=== PATIENT | female | born 1945 | race Caucasian/White ===

== ENCOUNTER → 2016-04-05 | Outpatient (CLI) | payer OTHER ==
[~2016-04-05] MED LIST: ACET-1256 PO; ACET-24 PO; ADVIN10050 INH; AMT50 PO; ASPCH81X PO; ASPEC81 PO; ATOR-54 PO; CALC500C70 PO; CHOL100010 PO; CYM/30 PO; FERR1TAB13 PO; HYDR-5688 PO; HYZ/50125 PO; IRON PO; LEVO137T3 PO; LOSA100T26 PO; LPR25 PO; LYR50 PO; MELA1TAB5 PO; METO50TA16 PO; MORP-157 PO; MULT-506 PO; PANT1TAB48 PO; RXC5 PO
== END | disposition home or self-care (01) ==
LOC: C.LABBC 15:46
PROVIDERS: ATTEND Internal Medicine Geriatric Medicine
DX: M70.22 Olecranon bursitis, left elbow (principal)

== ENCOUNTER → 2016-05-25 | Outpatient (CLI) | payer OTHER ==
[~2016-05-25] MED LIST changes: -LOSA100T26 PO; +LOSA100T33 PO
--- NOTE | 2016-05-25 18:32 | DIAGNOSTIC IMAGING REPORT ---
Venous Doppler right leg VENOUS DOPP LOWER EXT UNILAT CLINICAL HISTORY: M25.569 Knee [id number] pain. Edema. TECHNIQUE: Venous Doppler COMPARISON STUDY: None FINDINGS: Normal study IMPRESSION: Normal study Electronically signed by: Vic Norris M.D. 05/25/2016 6:31 PM Dictated Date/Time: 05/25/2016 6:30 PM
--- NOTE | 2016-06-01 06:26 | CODING QUERY MEDICAL NECESSITY ---
SUPPORTING DIAGNOSIS NEEDED Dr. Whitley, A supporting diagnosis is required for the test/procedure performed on this patient in order for us to be reimbursed by the patient's insurance. Please provide a supporting diagnosis for the following test/procedure listed below next to the test name along with your signature. *If there is no additional diagnosis for this patient that would support the following test/procedure please document that below next to the test/procedure. Test(s)/Procedure(s) that require a supporting diagnosis: * ([id number]) VENOUS DOPPLER LOWER EXT UNILA DIAGNOSIS: DATE OF SERVICE: 05/25/16 Provider Signature: Date: Thank you Radhames [facility] Information Management Once completed, please kindly fax back to [phone] For questions please call [phone]
== END | disposition home or self-care (01) ==
LOC: C.ULTR 18:06
PROVIDERS: ATTEND Internal Medicine Geriatric Medicine
DX: M25.561 Pain in right knee (principal); M79.669 Pain in unspecified lower leg

== ENCOUNTER 2016-09-10 08:09 | Inpatient (IN) | payer OTHER ==
[2016-08-17 13:20] VITALS: BMI 56.0
--- NOTE | 2016-08-17 13:57 | PAT Medication Instructions ---
Service Date Aug 17, 2016. Current Home Medication List Acetaminophen (Tylenol), 1,000 MG PO TID PRN for RN Amitriptyline Hcl (Elavil), 50 MG PO QPM Aspirin (Aspirin Chewable), 81 MG PO QPM Atorvastatin (Lipitor), 20 MG PO QPM Calcium/Vitamin D (Os-Luis 500 Plus D), 1 TAB PO BID Cholecalciferol (Vitamin D), 3,000 TAB PO QAM Duloxetine HCl (Cymbalta), 1 CAP PO BID Ferrous Sulfate (Kp Ferrous Sulfate), 1 TAB PO TID Fluticasone Prop/Salmeterol (Advair Diskus 100-50 Mcg/Dose), 1 PUFF INH QAM PRN for Cough Hctz/Losartan (Hyzaar 12.5MG/50MG), 1 TAB PO QAM Hydrocodone/Acetaminophen 5MG/325MG ([place] 5MG/325MG), 1 TABLET PO PRN PRN for Pain Levothyroxine Sodium (Levothyroxine Sodium), 1 TAB PO QAM Melatonin (Kp Melatonin), 1 TAB PO HS Metoprolol Tartrate (Lopressor) (Lopressor), 50 MG PO BID Multivitamin (Multivitamin), 1 TAB PO QAM Pantoprazole (Protonix), 40 MG PO QAM Pregabalin (Lyrica), 50 MG PO TID Medication Instructions For Your Scheduled Surgery - Hold the following medications the morning of surgery: Multivitamin (Multivitamin), 1 TAB PO QAM Cholecalciferol (Vitamin D), 3,000 TAB PO QAM Hctz/Losartan (Hyzaar 12.5MG/50MG), 1 TAB PO QAM Calcium/Vitamin D (Os-Luis 500 Plus D), 1 TAB PO BID Ferrous Sulfate (Kp Ferrous Sulfate), 1 TAB PO TID - Take the following medications the morning of surgery with a sip of water OTHERWISE NOTHING TO EAT OR DRINK AFTER MIDNIGHT: Metoprolol Tartrate (Lopressor) (Lopressor), 50 MG PO BID Pregabalin (Lyrica), 50 MG PO TID Pantoprazole (Protonix), 40 MG PO QAM Levothyroxine Sodium (Levothyroxine Sodium), 1 TAB PO QAM Hydrocodone/Acetaminophen 5MG/325MG ([place] 5MG/325MG), 1 TABLET PO PRN PRN for Pain (may take if needed up to 4 hours prior to surgery) Duloxetine HCl (Cymbalta), 1 CAP PO BID Fluticasone Prop/Salmeterol (Advair Diskus 100-50 Mcg/Dose), 1 PUFF INH QAM PRN for Cough Acetaminophen (Tylenol), 1,000 MG PO TID PRN (may take if needed up to 4 hours prior to surgery) - Take the following medications as scheduled the night before surgery: Metoprolol Tartrate (Lopressor) (Lopressor), 50 MG PO BID Pregabalin (Lyrica), 50 MG PO TID Hydrocodone/Acetaminophen 5MG/325MG ([place] 5MG/325MG), 1 TABLET PO PRN PRN for Pain Melatonin (Kp Melatonin), 1 TAB PO HS Amitriptyline Hcl (Elavil), 50 MG PO QPM Aspirin (Aspirin Chewable), 81 MG PO QPM Atorvastatin (Lipitor), 20 MG PO QPM Duloxetine HCl (Cymbalta), 1 CAP PO BID Fluticasone Prop/Salmeterol (Advair Diskus 100-50 Mcg/Dose), 1 PUFF INH QAM PRN for Cough Calcium/Vitamin D (Os-Luis 500 Plus D), 1 TAB PO BID Ferrous Sulfate (Kp Ferrous Sulfate), 1 TAB PO TID Acetaminophen (Tylenol), 1,000 MG PO TID PRN If you have any questions please call us at [phone] or [phone] or [phone]
[2016-08-17 14:47] LABS: BASO % 0.3 %; BASO ABS # 0.02 K/uL (0-0.2); COMPLETE YES; EOS % 3.5 %; HEMATOCRIT 41.7 % (37-47); IG% 0.2 %; LYMPH % 28.5 %; LYMPH ABS # 1.77 K/uL (1.2-3.4); MEAN CELL VOLUME 90.8 fL (80-100); MEAN CORPUSCULAR HEMOGLOBIN 29.8 pg (25-34); MEAN CORPUSCULAR HGB CONC 32.9 g/dl (32-36); MEAN PLATELET VOLUME 9.8 fL (7.4-10.4); MONO % 10.6 %; NEUT % 56.9 %; PLATELET COUNT 192 K/uL (130-400); RED BLOOD COUNT 4.59 M/uL (4.2-5.4)
[2016-08-17 15:01] LABS: INR 0.9 (0.9-1.1); PROTHROMBIN TIME (PATIENT) 10.1 SECONDS (9.0-12.0)
[2016-08-17 15:47] LABS: BLOOD UREA NITROGEN 19 mg/dl (7-18); BUN/CREATININE RATIO 20.4 (10-20); C-REACTIVE PROTEIN < 0.29 mg/dl (0-0.29); CALCIUM 9.5 mg/dl (8.5-10.1); CARBON DIOXIDE 32 mmol/L (21-32); CHLORIDE 102 mmol/L (98-107); CREATININE 0.93 mg/dl (0.60-1.20); GLUCOSE 110 mg/dl (70-99); POTASSIUM 4.1 mmol/L (3.5-5.1); SODIUM 138 mmol/L (136-145)
--- NOTE | 2016-09-08 10:22 | History and Physical ---
History & Physical Documentation Date Sep 08, 2016. Chief Complaint Right knee pain HPI (Knee Pain) Pain Location: Anterior knee, Lateral knee, Medial knee Duration: Years Adversely Affecting: ADL's, Recreation Symptoms Include: + Catching, + Pain, + Giving way History of Injury/Trauma: Uncertain Non-Surgical Therapies: Behavior modification, Exercise program Mechanical Assistive Devices: none Joint Injection: Steroid Prior Orthopedic Procedures: None Past Medical/Surgical History HTN Elevated Cholesterol Anxiety/depression TIA without sequelae Hypothyroidism Anemia GERD Spinal Stenosis Obesity Left Knee Replacement - 03/19/09 Tonsillectomy Additional History Hepatic Disease: No Endocrine Disorder: Yes Kidney Disease: No Hypertension: Yes Heart Disease: Yes Bleeding Tendencies: No Infectious Diseases: No Family History No Heart disease, No Pulmonary disease, No Anesthesia difficulties, No Bleeding tendencies Social History Smoking Status: Never Smoker Smokeless Tobacco Use: No Alcohol Use: none Drug Use: none Marital Status: single Housing status: lives alone Occupational Status: employed Allergies Coded Allergies: SHEREE Inhibitors (Verified Adverse Reaction, Intermediate, SEVERE COUGH, ) NSAIDs (Verified Adverse Reaction, Intermediate, GI BLEED, 08/17/16) Home Medications Scheduled Amitriptyline Hcl (Elavil), 50 MG PO QPM Aspirin (Aspirin Chewable), 81 MG PO QPM Atorvastatin (Lipitor), 20 MG PO QPM Calcium/Vitamin D (Os-Luis 500 Plus D), 1 TAB PO BID Cholecalciferol (Vitamin D), 3,000 TAB PO QAM Duloxetine HCl (Cymbalta), 1 CAP PO BID Ferrous Sulfate ( Ferrous Sulfate), 1 TAB PO TID Hctz/Losartan (Hyzaar 12.5MG/50MG), 1 TAB PO QAM Levothyroxine Sodium (Levothyroxine Sodium), 1 TAB PO QAM Melatonin (Kp Melatonin), 1 TAB PO HS Metoprolol Tartrate (Lopressor) (Lopressor), 50 MG PO BID Multivitamin (Multivitamin), 1 TAB PO QAM Pantoprazole (Protonix), 40 MG PO QAM Pregabalin (Lyrica), 50 MG PO TID Scheduled PRN Acetaminophen (Tylenol), 1,000 MG PO TID PRN for RN Fluticasone Prop/Salmeterol (Advair Diskus 100-50 Mcg/Dose), 1 PUFF INH QAM PRN for Cough Hydrocodone/Acetaminophen 5MG/325MG ([place] 5MG/325MG), 1 TABLET PO PRN PRN for Pain Review of Systems Constitutional: No fever, No chills, No sweats, No weight loss, No weakness, No fatigue, No problem reported ENT: No hearing loss, No unusual epistaxis, No nasal symptoms, No sore throat, No tinnitus, No dental problems, No trouble swallowing, No problem reported Respiratory: No cough, No sputum, No wheezing, No shortness of breath, No dyspnea on exertion, No dyspnea at rest, No hemoptysis, No problem reported Cardiovascular: No chest pain, No orthopnea, No PND, No edema, No claudication , No palpitations, No problem reported Abdomen: No pain, No nausea, No vomiting, No diarrhea, No constipation, No GI bleeding, No problem reported Musculoskeletal: + joint pain Neurologic: No memory loss, No paralysis, No weakness, No numbness/tingling, No vertigo, No balance problems, No problem reported Integumentary: No rash, No itch, No new/changing skin lesions, No color change , No bleeding, No problem reported Physical Exam Skin: warm/dry, no rash Eyes: normal inspection ENT: normal ENT inspection Head: normocephalic Neck: supple, no adenopathy Respiratory/Chest: lungs clear Cardiovascular: regular rate, rhythm Abdomen / GI: normal bowel sounds Back: normal inspection Neurovascular: Warm, Dry, Normal perfusion Neurologic/Psych: no motor/sensory deficits Physical Exam (Knee) Gait: + Antalgic Range of Motion: With crepitation (ROM = 5-120) Alignment: + Genu valgum Stability: No Nathaniel, No Anterior drawer, No Varus laxity, No Rotational laxity, No Posterior drawer, No Valgus laxity, No pertinent finding Tenderness: Medial joint line, Lateral joint line, Suprapatellar Radiology Plain Films: Osteophytes, Subchondral sclerosis Plain Films Joint Space: [id number], Severe narrowing Diagnosis & Plan Diagnosis & Plan (1) Right Knee DJD Plan: TKA
[2016-09-10] VITALS (7 sets, daily range): BP systolic 114–154; BP diastolic 72–95; PULSE 51–126; TEMP 36.3–36.8; O2SAT 94–99; Ht 152.4 cm; Wt 130.0 kg
[~2016-09-10] VITALS: Ht 152.4 cm; Wt 130.0 kg
[~2016-09-10 08:09] MED LIST changes: -ACET-24 PO; +ACETAMINOPHEN 500 MG TAB PO SCH; -ASPEC81 PO; +BUPIVACAINE 0.25% 30 ML VIAL ONE; +BUPIVACAINE 0.5 % 5 MG/1 ML PF 10ML VIAL ONE; +CEFAZOLIN 3000 MG/65 ML D5W 65 ML IV SCH; +FAMOTIDINE 20 MG TAB PO SCH; +GABAPENTIN 300 MG CAP PO SCH; -IRON PO; +LACTATED RINGER'S 1000ML IV SCH; +LACTATED RINGER'S 500 ML IV SCH; -LOSA100T33 PO; -LPR25 PO; +METOCLOPRAMIDE HCL 10 MG TAB PO SCH; -MORP-157 PO; -RXC5 PO; +SCOPOLAMINE 1.5 MG TDSY TD SCH; +TRANEXAMIC ACID INJ 1,000 MG in SODIUM CHLORIDE 0.9% 100ML 100 ML IV SCH
--- NOTE | 2016-09-10 08:27 | History & Physical Bridge Note ---
H&P Re-Evaluation Bridge Note: I have examined the patient, reviewed the History & Physical and in the interval since the performance of the History & Physical I have noted the following changes of clinical significance: No changes noted
[2016-09-10] MEDS ORDERED: MIDAZOLAM HCL 1 MG/ML 2ML VIAL ONE ×2 (09:12)
[2016-09-10] MEDS ORDERED: FENTANYL CITRATE INJ 50 MCG/1 ML 2 ML VIAL ONE (10:48)
[2016-09-10] MEDS ORDERED: SODIUM CHLORIDE 0.9% PF 50 ML VIAL ONE (11:10)
[2016-09-10] MEDS ORDERED: BACITRACIN 50000 UNIT VIAL ONE (11:10)
[2016-09-10] MEDS ORDERED: BUPIVACAINE LIPOSOME 1/3% 266 MG/20 ML VIAL INFIL ONE (11:10)
[2016-09-10] MEDS ORDERED: LIDOCAINE HCL 2% 2 ML VIAL (20MG/ML) ONE (11:44)
[2016-09-10] MEDS ORDERED: PROPOFOL IV EMULSION 10 MG/ML 20 ML VIAL IV ONE (11:44)
[2016-09-10] MEDS ORDERED: EpHEDrine SULFATE 50MG/5ML SYR ONE (11:48)
[2016-09-10] MEDS ORDERED: BUPIVACAINE/EPINEPHRINE 0.25% 10 ML VIAL ONE (11:51)
[2016-09-10] MEDS ORDERED: PHENYLEPHRINE HCL INJ 10 MG/ML VIAL ONE (12:02)
[2016-09-10] MEDS ORDERED: EpHEDrine SULFATE INJ 50 MG/ML AMP IV PRN (13:00)
[2016-09-10] MEDS ORDERED: PHENYLEPHRINE 100MCG/ML 5ML SYR IV PRN (13:00)
[2016-09-10] MEDS ORDERED: HYDROmorphone INJ 2 MG/ML SYR/VIAL IV PRN (13:00)
[2016-09-10] MEDS ORDERED: ONDANSETRON INJ 2 MG/ML 2 ML VIAL IV PRN ×2 (13:00→13:15)
[2016-09-10] MEDS ORDERED: ATROPINE SULFATE 0.1 MG/ML 5ML SYR IV PRN (13:00)
--- NOTE | 2016-09-10 13:07 | [facility] Post Operative Brief Note ---
Immediate Operative Summary Operative Date Sep 10, 2016. Pre-Operative Diagnosis Right knee degenerative joint disease Post-Operative Diagnosis Right knee degenerative joint disease Procedure(s) Performed Right Total Knee Arthroplasty Surgeon Dr. Tab Tellez Granite Cutter Surgeon(s) Luis Antonio Greer PA-C Estimated Blood Loss 50 cc Findings Right Knee DJD Fluids (cc crystalloids) 1400 cc Specimens A. Right knee bone and tissue Drains None Anesthesia Spinal Complication(s) None Disposition Recovery Room / PACU
[2016-09-10] MEDS ORDERED: ALUMINUM/MAGNESIUM/SIMETH (MAALOX MAX) 30 ML UDC PO PRN (13:15)
[2016-09-10] MEDS ORDERED: METOCLOPRAMIDE HCL INJ 5 MG/ML 2 ML VIAL IV PRN (13:15)
[2016-09-10] MEDS ORDERED: ZOLPIDEM TARTRATE 5 MG TAB PO PRN (13:15)
[2016-09-10] MEDS ORDERED: SILVER SULFADIAZINE 1% CR 50 GM JAR EXT PRN (13:15)
[2016-09-10] MEDS ORDERED: FLUTICASONE/SALMETEROL 100/50 (ADVAIR) 14 PUFF/1 INHALER INH PRN (13:15)
[2016-09-10] MEDS ORDERED: BISACODYL 10 MG SUPP PR PRN (13:15)
[2016-09-10] MEDS ORDERED: MAGNESIUM HYDROXIDE SUSP 30 ML UDC PO PRN (13:15)
[2016-09-10] MEDS ORDERED: HYDROmorphone INJ 0.5 MG/0.5 ML SYR IV PRN (13:15)
--- NOTE | 2016-09-10 13:59 | DIAGNOSTIC IMAGING REPORT ---
RIGHT KNEE 1 OR 2 VIEWS ROUTINE CLINICAL HISTORY: Right knee degenerative joint disease. Arthroplasty. COMPARISON: Right knee radiographs June 10, 2016. FINDINGS: Alignment of the total right knee arthroplasty is anatomic. There are skin sebastián. There is no fracture or unexpected radiopaque foreign body. IMPRESSION: Expected findings following total right knee arthroplasty. Electronically signed by: Jose Buck M.D. 09/10/2016 1:57 PM Dictated Date/Time: 09/10/2016 1:57 PM
--- NOTE | 2016-09-10 14:25 | Anesthesiology Progress Note ---
Anesthesia Post Op Note Date & Time Sep 10, 2016 at 14:25 Vital Signs Pain Intensity: 0 Vital Signs Past 12 Hours Date Time Temp Pulse Resp B/P (MAP) Pulse Ox O2 Delivery O2 Flow Rate FiO2 09/10/16 14:10 36.5 52 17 158/56 98 Nasal Cannula 2 09/10/16 14:00 47 21 151/59 100 Nasal Cannula 2 09/10/16 13:50 54 20 147/70 97 Nasal Cannula 2 09/10/16 13:40 48 17 158/76 96 Nasal Cannula 2 09/10/16 13:30 51 13 123/76 94 Nasal Cannula 2 09/10/16 13:20 52 13 104/88 96 Nasal Cannula 2 09/10/16 13:14 36.4 54 21 122/69 94 Nasal Cannula 2 09/10/16 08:45 36.8 60 20 140/95 94 Room Air Notes Mental Status: alert / awake / arousable, participated in evaluation Pt Amnestic to Procedure: Yes Nausea / Vomiting: adequately controlled Pain: adequately controlled Airway Patency, RR, SpO2: stable & adequate BP & HR: stable & adequate Hydration State: stable & adequate Anesthetic Complications: no major complications apparent
[2016-09-10] MEDS: D5W AND 1/2NSS + 20MEQ KCL 1,000 ML IV SCH ×2 (15:35→22:41)
[2016-09-10] MEDS: PREGABALIN 50 MG CAP PO SCH ×2 (15:37→20:33)
[2016-09-10] MEDS: CHECK SCOPOLAMINE PATCH PLACEMENT SCH ×2 (15:37→23:23)
[2016-09-10] MEDS: KETOROLAC TROMETHAMINE 15 MG/ML VIAL IV. SCH ×2 (18:00→23:23)
[2016-09-10] MEDS: FERROUS GLUCONATE 324 MG TAB PO SCH (18:00)
[2016-09-10] MEDS: OXYCODONE HCL IR 5 MG TAB (IMMEDIATE RELEASE) PO PRN (18:04)
[2016-09-10] MEDS ORDERED: TRANEXAMIC ACID INJ 1,000 MG in SODIUM CHLORIDE 0.9% 100ML 100 ML IV SCH (19:00)
[2016-09-10] MEDS: CEFAZOLIN IV 2,000 MG in DEXTROSE 5% 50ML 50 ML IV SCH (20:23)
[2016-09-10] MEDS: DOCUSATE SODIUM 100 MG CAP PO SCH (20:25)
[2016-09-10] MEDS: AMITRIPTYLINE HCL 50 MG TAB PO SCH (20:25)
[2016-09-10] MEDS: TAPENTADOL ER 50 MG TABCR PO SCH (20:25)
[2016-09-10] MEDS: ATORVASTATIN 20 MG TAB PO SCH (20:26)
[2016-09-10] MEDS: DULOXETINE (CYMBALTA) 30 MG CAP PO SCH (20:26)
[2016-09-10] MEDS: CALCIUM 600MG + VIT D 400 IU TAB PO SCH (20:27)
[2016-09-10] MEDS: ASPIRIN 81 MG ECTAB PO SCH (20:27)
[2016-09-10] MEDS: SENNA 8.6 MG TAB PO SCH (20:28)
[2016-09-10] MEDS: METOPROLOL TARTRATE 50 MG TAB PO SCH (20:29)
[2016-09-10] MEDS ORDERED: NON-FORMULARY MEDICATION (Melatonin (Kp Melatonin) 1 TAB) PO SCH (21:00)
[2016-09-10] MEDS: ACETAMINOPHEN 500 MG TAB PO SCH (22:41)
[2016-09-11] VITALS (8 sets, daily range): BP systolic 107–147; BP diastolic 57–83; PULSE 61–68; TEMP 36.4–36.9; O2SAT 91–96
[2016-09-11] MEDS: OXYCODONE HCL IR 5 MG TAB (IMMEDIATE RELEASE) PO PRN (03:45)
[2016-09-11] MEDS: CEFAZOLIN IV 2,000 MG in DEXTROSE 5% 50ML 50 ML IV SCH (03:45)
[2016-09-11] MEDS: D5W AND 1/2NSS + 20MEQ KCL 1,000 ML IV SCH ×2 (05:17→10:55)
[2016-09-11] MEDS: KETOROLAC TROMETHAMINE 15 MG/ML VIAL IV. SCH ×4 (05:17→23:33)
[2016-09-11] MEDS: LEVOTHYROXINE 137 MCG TAB PO SCH (05:18)
[2016-09-11] MEDS: ACETAMINOPHEN 500 MG TAB PO SCH ×3 (05:19→21:29)
[2016-09-11 06:24] LABS: HEMATOCRIT 34.6 % (37-47); MEAN CELL VOLUME 93.5 fL (80-100); MEAN CORPUSCULAR HEMOGLOBIN 29.5 pg (25-34); MEAN CORPUSCULAR HGB CONC 31.5 g/dl (32-36); MEAN PLATELET VOLUME 9.7 fL (7.4-10.4); PLATELET COUNT 170 K/uL (130-400); WHITE BLOOD COUNT 8.25 K/uL (4.8-10.8)
[2016-09-11 06:56] LABS: BUN/CREATININE RATIO 20.2 (10-20); CALCIUM 8.9 mg/dl (8.5-10.1)
[2016-09-11] MEDS: CHECK SCOPOLAMINE PATCH PLACEMENT SCH ×3 (07:28→23:32)
--- NOTE | 2016-09-11 07:29 | OPERATIVE REPORT ---
DATE OF OPERATION: 09/10/2016 SURGEON: Tab Tellez MD HEAT TREAT SUPERVISOR: MIGUEL Roque PREOPERATIVE DIAGNOSIS: Right knee degenerative joint disease. POSTOPERATIVE DIAGNOSIS: Same. PROCEDURE PERFORMED: Right cemented posterior stabilized total knee arthroplasty. COMPLICATIONS: None. ESTIMATED BLOOD LOSS: 50 mL. FLUID REPLACEMENT: 1400 mL crystalloid fluid replacement. ANESTHESIA: Spinal with adductor canal block. DRAINS: None. SPECIMENS: Right knee sent for pathology. TOURNIQUET TIME: 61 minutes at 350 mmHg. OPERATIVE INDICATIONS: The patient is a 71-year-old female who is now about 7 years out from a left knee replacement. Over the years, she developed increased pain and discomfort in her right knee. She has been through extensive conservative treatment without adequate relief. X-rays revealed advanced tricompartmental tricompartment DJD. The patient elected to proceed with operative treatment. OPERATIVE FINDINGS: Operative findings revealed advanced right knee tricompartment DJD. She had a very large soft tissue envelope with a BMI of 56. She had extensive grade 4 changes in all 3 compartments. Slightly valgus aligned knee. Diffuse osteopenia. Large knee joint effusion. She had multiple osteophytes in all 3 compartments and also some loose bodies in suprapatellar pouch and adherent to the quad tendon. OPERATIVE IMPLANTS: Operative implants consisted of: 1. Biomet Vanguard size 67.5 right posterior stabilized femoral component. 2. Biomet size 71 tibial tray. 3. A 12-mm posterior stabilized polyethylene insert. 4. A 31 x 8 all poly patella. OPERATIVE PROCEDURE: The patient was taken to the operating room, identified and placed on the operating table in the supine position. All contact areas were appropriately padded. IV antibiotics provided by anesthesia team. A spinal anesthetic and adductor canal block had been provided in the holding area. Romero catheter was placed in sterile fashion. Right thigh tourniquet was then placed and the right lower extremity was then prepped and draped in the usual sterile fashion. The right leg was elevated and exsanguinated with an Esmarch and tourniquet was placed at 350 mmHg. An anterior approach to the right knee was then performed through a longitudinal incision. Sharp dissection was carried out through the subcutaneous tissues down to the level of the extensor mechanism. She had a very large soft tissue envelope. A medial parapatellar arthrotomy incision was made. Some subperiosteal dissection was carried out medially. The fat pad was resected from beneath the patellar tendon. The lateral patellofemoral ligament was released. There were multiple loose bodies removed from the suprapatellar pouch area and adherent to the quad. The patella was then subluxated laterally and the knee was flexed. The osteophytes were taken off the distal femur. The ACL and PCL were then released from the distal femur and the tibia subluxated anteriorly. The external tibial alignment jig was then placed in the anterior face of the tibia and adjusted 12 mm medially. Proximal tibial cut was made to remove about 3-4 mm of bone from the medial side. This took by an even piece both medially and laterally. The tibia was sized to a size 71. Attention was then drawn to the femur. The distal femur was entered with a sharp drill. Intramedullary canal was suctioned. A right 5-degree valgus cutting guide was placed. Distal femoral cutting block was pinned in place. Distal femoral cut was made to take an additional 3 mm of bone off the distal femur. The femur was then sized to a size 67.5. We did downsize this just slightly. The AP cutting block was pinned parallel to the epicondylar axis, which was 5 degrees of external rotation. The anterior cut, anterior chamfer, posterior cut, and posterior chamfer cuts were made. Box cutting guide was placed and adjusted slightly lateral and the box cut was made. The knee was flexed. The remnants of the medial and lateral menisci were excised. The osteophytes were taken off the posterior aspect of the femur. Trial femoral component was placed. Tibial tray was pinned in maximum external rotation and the drill and stem punch were used to create defect in the proximal tibia for the tibial tray. The knee was then trialed and a 12-mm insert fit most appropriately. Attention was then drawn to the patella. The patella was cleaned of all soft tissues. Patellar thickness measured about 18 mm. It was cut down to about 14. I was concerned to cut anymore as it was pretty osteopenic. It was sized to a size 31 patella. Lug holes were drilled for a 31 patella. Lateral osteophyte was removed. The patellar button was placed. Knee was taken through range of motion and the patella tracked nicely with no thumbs test. Attention was then drawn toward placement of permanent components. All trial components were removed. A bone plug was placed in the distal femur to limit blood loss. A double batch of Palacos G cement was mixed. A right size 67.5 posterior stabilized femoral component, size 71 tibial tray, a 12-mm posterior stabilized polyethylene insert, and a 31 x 8 all poly patella then cemented in place. Knee was brought out into full extension until cement had hardened. A final cement check was then performed. The pericapsular tissues were injected with a total of 100 mL of a combination of 20 mL of Exparel, 30 mL of normal saline, and 50 mL of 0.25% Marcaine with epinephrine. The tourniquet was then let down for final tourniquet time of 61 minutes. The patient did receive 1 gram of tranexamic acid. The wound was once again irrigated. The extensor mechanism was then closed with a combination of #1 PDS suture and #1 Vicryl suture in a [id number] fashion. Extensor mechanism was checked and found to be intact. Subcutaneous tissues were then closed with 2-0 Dexon suture in a buried interrupted fashion. Skin was closed skin sebastián. Leg was then cleaned and dried and a sterile dressing of Xeroform, 4 x 4, sterile cast padding and Ganesh bandage were applied. The patient was then transferred to the recovery room in stable condition. The patient tolerated the procedure well with no complications. All needle and sponge counts were correct at the end of the operation. I attest to the content of the Intraoperative Record and any orders documented therein. Any exception s are noted below.
[2016-09-11] MEDS: PREGABALIN 50 MG CAP PO SCH ×3 (08:29→20:59)
[2016-09-11] MEDS: TAPENTADOL ER 50 MG TABCR PO SCH ×2 (08:30→20:59)
[2016-09-11] MEDS: DOCUSATE SODIUM 100 MG CAP PO SCH ×2 (08:30→20:51)
[2016-09-11] MEDS: DULOXETINE (CYMBALTA) 30 MG CAP PO SCH ×2 (08:30→20:53)
[2016-09-11] MEDS: PANTOprazole SOD 40 MG TAB PO SCH (08:30)
[2016-09-11] MEDS: MULTIVITAMIN TAB PO SCH (08:30)
[2016-09-11] MEDS: METOPROLOL TARTRATE 50 MG TAB PO SCH ×2 (08:30→20:54)
[2016-09-11] MEDS: FERROUS GLUCONATE 324 MG TAB PO SCH ×3 (08:31→17:29)
[2016-09-11] MEDS: ASPIRIN 81 MG ECTAB PO SCH ×2 (08:31→20:51)
[2016-09-11] MEDS: CHOLECALCIFEROL 400 INTER.UNIT TAB PO SCH (08:31)
[2016-09-11] MEDS: LOSARTAN/HCTZ 50-12.5 EA TAB PO SCH (08:31)
[2016-09-11] MEDS: CALCIUM 600MG + VIT D 400 IU TAB PO SCH ×2 (08:31→20:52)
[2016-09-11] MEDS ORDERED: RXC5 PO (08:37)
[2016-09-11] MEDS ORDERED: ASPEC81 PO (08:37)
[2016-09-11] MEDS ORDERED: MORP-157 PO (08:37)
[2016-09-11] MEDS ORDERED: ACET-24 PO (08:37)
--- NOTE | 2016-09-11 08:39 | Discharge Instructions ---
Discharge Instructions Date of Service Sep 11, 2016. Admission Reason for Admission: Right Knee Degenerative Joint Disease Discharge Discharge Diagnosis / Problem: Right Knee Replacement Discharge Goals Goal(s): Decrease discomfort, Improve function, Increase independence, Improve disease control, Therapeutic intervention Activity Recommendations Activity Limitations: per Instructions/Follow-up section Weightbearing Status: Right weightbearing . Instructions / Follow-Up Instructions / Follow-Up ACTIVITY RECOMMENDATIONS: Physical Therapy: * You will go to physical therapy three times each week for four to six weeks after your surgery in order to regain your knee range of motion and to retrain your knee to work properly. * It is just as important to make sure you are getting your knee perfectly straight as it is to regain your knee bend. * Taking a pain pill an hour before therapy can help you have a more productive and comfortable therapy session. Home Exercise: * You were shown a series of exercises (heel props, heel slides, etc.) in the hospital. Do these exercises three to four times each day including the exercises you were shown in physical therapy. Walking: * Get up and walk several times each day. For the first four weeks, try not to stand or walk for more than one hour at a time. If you do stand or walk for more than one hour, you will not hurt anything, but your knee and leg will likely swell. * As you feel comfortable, you may change from the walker or crutches to a cane and then to independent walking. MEDICATIONS: New Medicine: * You will likely be taking one or more of these medications: 1. MS Contin - A long-acting pain medication. Take 1 tablet twice a day for the first ten days to decrease your baseline level of pain. 2. Oxycodone - A quick and shorter-acting pain medication. Take one to two tablets every four to six hours to lessen your pain. 3. Iron Sulfate - Take three times each day for the month after surgery to help you replace the blood lost during surgery. 4. Aspirin - Thins your blood to lessen the chance of forming a blood clot. * The most common side effects of pain medicine and iron are nausea and constipation. If nausea or constipation is too much of a problem or if you have any questions about your new medicines or doses, call [facility] at . We will try to help you manage these issues. VERY IMPORTANT TO READ AND REVIEW" Pain: * The immediate post-operative period after knee replacement surgery is often quite painful. * You are given a prescription for pain medicine. You should take it, as directed, when you need it, especially before physical therapy and before going to bed. Pain that interferes with sleep is very common and can last several months. * You will likely need pain medicine for the first four to six weeks. It will not stop all of the pain. The pain will lessen and as you feel better, you may change to milder pain medicine such as Tylenol. * The most common side effects of pain medicine are nausea and constipation, so don't take more than you need. SPECIAL CARE INSTRUCTIONS: TEDs/Elastic Stockings: * The white elastic stockings help limit swelling and prevent blood clots from forming in your legs. The more you wear them, the more they work. * Wear them for six weeks after knee replacement surgery and four weeks after partial knee replacement. Prevention of Infection: * Take antibiotics one hour before any dental cleaning, dental work, urological procedure, gastrointestinal procedure or any invasive surgery in order to prevent your new joint from getting infected. * You may get the antibiotics from the doctor performing the procedure or you may call our office at before and we will call in a prescription to the pharmacy of your choice. Things to Watch For: * Drainage from the incision site that occurs more than one week after your surgery. * Severely increased knee/leg pain or swelling. * Increased redness at the incision site. * Fever above 102 degrees Fahrenheit. * Unusual chest pain or shortness of breath. * Unusual pain or burning with urination. Call [facility] at with any of the above problems or if you have any questions about your medicines or recovery. FOLLOW UP VISIT: Make an appointment to see your doctor for approximately two weeks after surgery for a progress check and staple removal by calling the office at . Current Hospital Diet Patient's current hospital diet: Regular Diet Discharge Diet Recommended Diet: Regular Diet Procedures Procedures Performed: Right Total Knee Arthroplasty Pending Studies Studies pending at discharge: no Medical Emergencies . Who to Call and When: Medical Emergencies: If at any time you feel your situation is an emergency, please call [phone] immediately. . Non-Emergent Contact Non-Emergency issues call your: Surgeon . "Provider Documentation" section prepared by Tab Tellez. . VTE Core Measure Inpt VTE Proph given/why not?: Other Anticoagulation, T.E.D. Stockings, SCD's
[2016-09-11] MEDS ORDERED: MULTIVITAMIN TAB PO SCH (09:00)
[2016-09-11] MEDS ORDERED: PANTOprazole SOD 40 MG TAB PO SCH (09:00)
--- NOTE | 2016-09-11 09:40 | PROGRESS NOTE ---
DATE: 09/11/2016 SUBJECTIVE: A 71-year-old white female postop day 1 from right knee replacement. She is doing pretty well. Pain is controlled. Denies any chest pain or shortness of breath. Not feeling dizzy or lightheaded. OBJECTIVE: VITAL SIGNS: Temperature 36.9. Vital signs stable. PHYSICAL EXAMINATION: GENERAL: Reveals a healthy, pleasant elderly female. She is lying in bed, looks pretty comfortable. LUNGS: Clear to auscultation. HEART: Regular rate and rhythm. ABDOMEN: Soft, nontender, nondistended. EXTREMITIES: Grossly neurovascularly intact except as follows: Examination of the right leg reveals the dressing to be clean, dry and intact. The leg is well aligned. She can dorsiflex and plantarflex her foot appropriately. NEUROLOGIC: She is neurologically intact. LABORATORY DATA: Hemoglobin 10.9, hematocrit 34.6. Electrolytes are stable. ASSESSMENT: A 71-year-old white female postop day 1 from right knee replacement, doing pretty well. Mildly anemic. She is asymptomatic. Pain is controlled. She is neurologically intact. PLAN: 1. DVT prophylaxis including thigh-high TEDs, SCDs, and we are going to give her baby aspirin twice a day. 2. PT/OT. Weightbearing as tolerated. Right total knee protocol. 3. Pain control, doing reasonably well with current pain regimen. 4. Anemia. Currently asymptomatic. We will continue iron supplementation. 5. Disposition: Plan to discharge to her daughter's house where she will likely get some home health for a period of time.
[2016-09-11] MEDS: ATORVASTATIN 20 MG TAB PO SCH (21:27)
[2016-09-11] MEDS: AMITRIPTYLINE HCL 50 MG TAB PO SCH (21:27)
[2016-09-11] MEDS: SENNA 8.6 MG TAB PO SCH (21:28)
[2016-09-12] MEDS: ACETAMINOPHEN 500 MG TAB PO SCH (06:02)
[2016-09-12] MEDS: LEVOTHYROXINE 137 MCG TAB PO SCH (06:03)
[2016-09-12] MEDS: KETOROLAC TROMETHAMINE 15 MG/ML VIAL IV. SCH (06:06)
[2016-09-12 07:30] VITALS: BP 114/61; PULSE 75; TEMP 36.8; O2SAT 93
[2016-09-12] MEDS: TAPENTADOL ER 50 MG TABCR PO SCH (08:23)
[2016-09-12] MEDS: PREGABALIN 50 MG CAP PO SCH (08:23)
[2016-09-12] MEDS: CHOLECALCIFEROL 400 INTER.UNIT TAB PO SCH (08:24)
[2016-09-12] MEDS: MULTIVITAMIN TAB PO SCH (08:24)
[2016-09-12] MEDS: LOSARTAN/HCTZ 50-12.5 EA TAB PO SCH (08:24)
[2016-09-12] MEDS: FERROUS GLUCONATE 324 MG TAB PO SCH (08:24)
[2016-09-12] MEDS: PANTOprazole SOD 40 MG TAB PO SCH (08:24)
[2016-09-12] MEDS: CALCIUM 600MG + VIT D 400 IU TAB PO SCH (08:25)
[2016-09-12] MEDS: ASPIRIN 81 MG ECTAB PO SCH (08:25)
[2016-09-12] MEDS: DOCUSATE SODIUM 100 MG CAP PO SCH (08:25)
[2016-09-12] MEDS: METOPROLOL TARTRATE 50 MG TAB PO SCH (08:25)
[2016-09-12] MEDS: DULOXETINE (CYMBALTA) 30 MG CAP PO SCH (08:25)
[2016-09-12 09:18] VITALS: BP 114/61; PULSE 75; O2SAT 93
[2016-09-12 09:29] VITALS: BP 114/61; PULSE 75; TEMP 36.8; O2SAT 93
--- NOTE | 2016-09-12 11:11 | PROGRESS NOTE ---
DATE: 09/12/2016 DATE: 09/12/2016. SUBJECTIVE: A 71-year-old white female postop day 2 from right knee replacement. She is doing pretty well. Pain is controlled. Denies any chest pain or shortness of breath. Not feeling dizzy or lightheaded. OBJECTIVE: VITAL SIGNS: Temperature 36.7. Vital signs stable. PHYSICAL EXAMINATION: GENERAL: Reveals a pleasant elderly female. She is lying in bed and looks comfortable. LUNGS: Clear to auscultation. HEART: Regular rate and rhythm. ABDOMEN: Soft, nontender, nondistended. EXTREMITY EXAMINATION: Grossly neurovascularly intact except as follows: Examination of the right leg reveals the leg to be well aligned. Dressing is clean, dry and intact. The patient can dorsiflex and plantarflex her foot appropriately. Calf is soft and supple. ASSESSMENT: A 71-year-old white female postop day 2 from a right knee replacement, doing well. Pain is controlled. PLAN: 1. DVT prophylaxis including thigh-high TEDs, SCDs, and aspirin. She is going to take a baby aspirin twice a day. 2. PT/OT. Weightbearing as tolerated. Right total knee protocol. 3. Pain control. Doing well with current pain regimen. 4. Anemia currently asymptomatic. Continue iron supplementation. 5. Disposition. Plan to discharge to her daughter's house with some home health.
--- NOTE | 2016-09-16 15:51 | DISCHARGE SUMMARY ---
NOTICE TO RECEIVING LIBERTARIAN/AGENCY This information is strictly Confidential and protected under [place] law. [place] law prohibits you from making any further disclosure of this information unless further disclosure is expressly permitted by the written consent of the person to whom it pertains or is authorized by law. A general authorization for the release of medical or other information is not sufficient for this purpose. Hospital accepts no responsibility if the information is made available to any other person, INCLUDING THE PATIENT. ADMITTING PHYSICIAN AND SURGEON: Dr. Tellez. ADMITTING DIAGNOSIS: Right knee degenerative joint disease. SURGERY PERFORMED: Right total knee arthroplasty. SECONDARY DIAGNOSES: Hypertension, elevated cholesterol, anxiety, depression, TIA, hypothyroidism, anemia, GERD, spinal stenosis, obesity, left total knee replacement, tonsillectomy. CONSULTS: None obtained. HISTORY AND PHYSICAL EXAMINATION: Well documented in patient's chart. HOSPITAL COURSE: The patient was admitted on 09/10/2016 underwent total knee arthroplasty. She tolerated the procedure well. There were no complications. She was transferred to PACU postoperatively and later to the orthopedic floor for further care. She was given Ancef for antibiotic prophylaxis, SERENITY stockings, SCDs and aspirin for DVT prophylaxis. Her hemoglobin, hematocrit and vital signs were monitored during her hospital stay and remained stable. She developed some postoperative anemia, did not require any blood transfusions. There were no complications. By postoperative day 2, she was tolerating a general diet, pain was controlled with oral pain medicine. She was participating in physical therapy and had no signs or symptoms of deep vein thrombosis. On postop day 2, she was discharged home and set up with home health services, given printed discharge instructions including prescriptions for extra strength Tylenol, aspirin 81 mg b.i.d., MS Contin, oxycodone. Continue her home medicines with the exception of her home doses of Tylenol, aspirin and [place] which she was told to stop. Continue physical therapy. weightbearing as tolerated, SERENITY stockings. Follow up in 10-12 days or sooner if there are any problems or concerns.
== END 2016-09-12 10:59 | disposition home health service (06) | DRG 470 ==
LOC: C.ACU 08:09 → C.3E 08:46 → ENRESERV 13:48
PROVIDERS: ADMIT Orthopaedic Surgery Sports Medicine; ATTEND Orthopaedic Surgery Sports Medicine
PROC: 0SRD0J9 Replacement of Left Knee Joint with Synthetic Substitute, Cemented, Open Approach (ICD-10-PCS; principal; 2016-09-10 10:40)
DX: M17.11 Unilateral primary osteoarthritis, right knee (principal); I10 Essential (primary) hypertension; E78.00 Pure hypercholesterolemia, unspecified; F41.9 Anxiety disorder, unspecified; F32.9 Major depressive disorder, single episode, unspecified; Z86.73 Personal history of transient ischemic attack (TIA), and cerebral infarction without residual deficits; E03.9 Hypothyroidism, unspecified; K21.9 Gastro-esophageal reflux disease without esophagitis; E66.9 Obesity, unspecified; Z96.652 Presence of left artificial knee joint; Z79.82 Long term (current) use of aspirin

== ENCOUNTER → 2017-09-29 | Outpatient (CLI) | payer OTHER ==
[~2017-09-29] MED LIST changes: -ACET-1256 PO; +ACET-24 PO; -ACETAMINOPHEN 500 MG TAB PO SCH; -ASPCH81X PO; +ASPI-320 PO; -ATOR-54 PO; -BUPIVACAINE 0.25% 30 ML VIAL ONE; -BUPIVACAINE 0.5 % 5 MG/1 ML PF 10ML VIAL ONE; -CEFAZOLIN 3000 MG/65 ML D5W 65 ML IV SCH; -FAMOTIDINE 20 MG TAB PO SCH; -GABAPENTIN 300 MG CAP PO SCH; -HYDR-5688 PO; -LACTATED RINGER'S 1000ML IV SCH; -LACTATED RINGER'S 500 ML IV SCH; +LPT/40 PO; -LYR50 PO; -METOCLOPRAMIDE HCL 10 MG TAB PO SCH; +PANT1TAB3 PO; -PANT1TAB48 PO; -SCOPOLAMINE 1.5 MG TDSY TD SCH; -TRANEXAMIC ACID INJ 1,000 MG in SODIUM CHLORIDE 0.9% 100ML 100 ML IV SCH
== END | disposition home or self-care (01) ==
LOC: C.MAMM 14:40
PROVIDERS: ATTEND Physician Assistant
DX: Z00.00 Encounter for general adult medical examination without abnormal findings (principal)

== ENCOUNTER 2022-06-29 10:15 | Inpatient (IN) ==
[2022-06-29] MEDS ORDERED: SODIUM CHLORIDE 0.9% 500 ML IV ONE (11:04)
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
[2022-06-29 11:57] LABS: iSTAT Creatinine 0.7 mg/dl (0.6-1.3); iSTAT Hemoglobin 12.9 g/dl (12.0-16.0); iSTAT Ionized Calcium 1.18 mmol/l (1.12-1.32)
[2022-06-29 12:14] LABS: Appearance Urine Clear (Clear); Bacteria Urine Automated Negative (Negative); Bilirubin Urine Negative (Negative); Blood Urine Trace (Negative); Cast Urine Automated 0 /lpf (0-5); Color Urine Yellow; Glucose Urine UA Negative (Negative); Ketones Urine Negative (Negative); Leukocyte Esterase Urine 1+ (Negative); Nitrite Urine Negative (Negative); Protein Urine Negative (Negative); RBC Urine Automated 0-4 /hpf (0-4); Specific Gravity Urine 1.008 (1.000-1.030); Urobilinogen Urine Negative (Negative); pH Urine 7.5 (4.5-7.5)
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
[2022-06-29 12:19] LABS: Basophils # (auto) 0.04 K/uL (0-0.2); Basophils % (auto) 0.3 %; Eosinophils # (auto) 0.08 K/uL (0-0.50); Eosinophils % (auto) 0.7 %; Hematocrit (blood only) 41.6 % (37.0-47.0); Hemoglobin 13.6 g/dl (12.0-16.0); Immature Granulocytes # (auto) 0.06 K/uL (0.01-0.20); Immature Granulocytes % (auto) 0.5 %; Lymphocytes # (auto) 1.04 K/uL (1.2-3.4); Lymphocytes % (auto) 8.7 %; Mean Corpuscular Hemoglobin 30.3 pg (25.0-34.0); Mean Corpuscular Hgb Conc 32.7 g/dL (32.0-36.0); Mean Corpuscular Volume 92.7 fL (80.0-100.0); Mean Platelet Volume 9.8 fL (9.4-12.4); Monocytes # (auto) 0.81 K/uL (0.11-0.59); Monocytes % (auto) 6.8 %; Neutrophils # (auto) 9.89 K/uL (1.40-6.50); Platelet Count 206 K/uL (130-400); RDW Standard Deviation 47.8 fL (36.4-46.3); Red Blood Count 4.49 M/uL (4.20-5.40); White Blood Count 11.92 K/ul (4.8-10.8)
[2022-06-29] MEDS ORDERED: OPTIRAY 320 100ml IV ONE (12:24)
--- NOTE | 2022-06-29 12:24 | XRay Report ---
RIGHT ANKLE 3 VIEWS CLINICAL HISTORY: Right ankle injury. FINDINGS: 3 views of the right ankle are obtained. No prior studies are available for comparison at t he time of dictation. The skeletal structures are osteopenic. No fracture seen at the ankle joint. Th ere is acute impacted and comminuted calcaneal fracture. The ankle mortise is intact. Severe soft tis praneeth edema is present on the ankle and hindfoot. There is degenerative spurring along the dorsal aspec t of the tarsal bones. Phleboliths are seen within the pretibial soft tissues. IMPRESSION: 1. No acute fracture seen at the ankle joint. 2. Impacted and comminuted calcaneal fracture. Electronically signed by: David Mahmood M.D. 06/29/2022 12:22 PM
[2022-06-29 12:33] LABS: Albumin Globulin Ratio 1.5 (0.9-2); Albumin Level 4.1 gm/dl (3.4-5.0); BUN Creatinine Ratio 24.6 (10-20); Bilirubin,Total 0.8 mg/dl (0.2-1.0); Calcium 9.7 mg/dl (8.6-10.3); Est GFR (African American) 96.6 ml/min; Est GFR (Non-African American) 83.4 ml/min; Globulin 2.8 gm/dl (2.5-4.0); Total Protein 6.9 gm/dl (6.0-8.3)
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
--- NOTE | 2022-06-29 12:35 | XRay Report ---
XR foot RT min 3V routine CLINICAL HISTORY: r foot pain TECHNIQUE: 2 views of the right foot were obtained. Comparison: None available at the time of this dictation. FINDINGS: There is a fracture of the calcaneus which appears comminuted involving the tuberosity and anterior p rocess. 8 does appear to extend to the posterior facet. Degenerative changes are seen. Soft tissue sw elling is seen about the foot. IMPRESSION: Comminuted and impacted intra-articular calcaneal fracture is seen with associated soft tissue natalielli ng. ACT 112: Negative or not required by law. Electronically signed by: Bharathi Coker M.D. 06/29/2022 12:33 PM
[2022-06-29 12:39] LABS: Troponin I High Sensitivity 14.8 pg/ml (0-14)
--- NOTE | 2022-06-29 12:45 | CT Scan Report ---
CT chest diagnostic w con CLINICAL HISTORY: Trauma TECHNIQUE: Multidetector row helical CT of the chest was performed with intravenous contrast. Coronal and sagittal reformations were obtained. Automated dose lowering techniques and/or adjustment accord ing to patient size were utilized for this exam. Comparison: None available at the time of this dictation. FINDINGS: Lungs and pleura: Unremarkable without evidence of contusion. Mild atelectasis is seen in the right l ower lung. There is a 5 mm nodule in the right middle lobe (series 12 image 118) which is stable from prior exam. Heart and pericardium: Aortic valvular calcifications are seen. Vessels: Mild atherosclerotic changes in the aorta and coronary arteries. Mediastinum and dileep: Unremarkable. Chest wall and lower neck: Unremarkable. Abdomen: For findings below the diaphragm, please refer to CT of the abdomen dated the same. Bones: Unremarkable. IMPRESSION: No acute abnormalities and in particular no evidence of acute fracture. ACT 112: Negative or not required by law. Electronically signed by: Bharathi Coker M.D. 06/29/2022 12:43 PM
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
[2022-06-29] MEDS ORDERED: LIDO/EPINEPHRINE/SOD BICARB 50 ML VIAL INFIL ONE (13:15)
[2022-06-29 13:20] LABS: Prothrombin Time 10.7 Seconds (9.0-12.0)
[2022-06-29] MEDS ORDERED: HYDROmorphone INJ 0.5 MG/0.5 ML SYR IV STA (13:53)
--- NOTE | 2022-06-29 14:05 | Emergency Department Note ---
ED Visit Note I was asked by Dr. Rust to evaluate and repair the patient's lacerations on her L knee and R lower leg. Patient is up to date on tetanus. Laceration repair performed by myself: Location: Left anterior knee Description: curvilinear extending to subcutaneous tissue measuring 3 cm in length. No joint involvement Procedure: Local anesthesia was achieved with 3 mL lidocaine 1% with epinephrine. Wound was copiously irrigated with sterile saline. Wound was draped and repaired with 3, 4-0 nylon simple interrupted sutures. Wound dressing was applied consisting of bacitracin ointment, Vaseline gauze, Telfa nonstick gauze, and roll gauze. Patient tolerated procedure well, no complications. Location: Right anterior lower leg Description: Linear flap laceration measuring 5 cm in length extending into the subcutaneous tissue. Procedure: Local anesthesia was achieved with 6 mL lidocaine 1% with epinephrine. Wound was copiously irrigated with sterile saline. Wound was draped and repaired with 8, 4-0 nylon simple interrupted sutures. Wound dressing was applied consisting of bacitracin ointment, Vaseline gauze, Telfa nonstick gauze, and roll gauze. Patient tolerated procedure well, no complications. Suture removal should occur in 14 days. Patient should be advised to avoid fully flexing the left knee to prevent dehiscence. Please refer to Dr. Rust's note for further details regarding patient's disposition. .
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
--- NOTE | 2022-06-29 15:04 | CT Scan Report ---
CT foot RT wo con CLINICAL HISTORY: per ortho TECHNIQUE: Multidetector row helical CT of the right foot was performed without intravenous contrast. Coronal and sagittal reformations were obtained. Automated dose lowering techniques and/or adjustmen t according to patient size were utilized for this examination. CT DOSE: 187.32 mGy.cm Comparison: Comparison is made to right foot radiographs 06/29/2022 FINDINGS: There is a comminuted intra-articular fracture of the calcaneus involving the anterior and posterior articular facets. The joint spaces are maintained. Soft tissue swelling is seen about the heel of the foot and about the ankle. IMPRESSION: Comminuted fracture of the calcaneus involving both articular facets. ACT 112: Negative or not required by law. Electronically signed by: Bharathi Coker M.D. 06/29/2022 3:03 PM
[2022-06-29] MEDS ORDERED: POLYETHYLENE (MIRALAX) 17 GM PACK PO PRN (16:20)
[2022-06-29] MEDS ORDERED: ONDANSETRON INJ 2 MG/ML 2 ML VIAL IV PRN (16:20)
[2022-06-29] MEDS ORDERED: ACETAMINOPHEN 1,000 MG/100 ML VIAL IV PRN (16:20)
[2022-06-29] MEDS ORDERED: HYDROmorphone INJ 0.5 MG/0.5 ML SYR IV PRN (16:20)
[2022-06-29] MEDS: DICLOFENAC SOD 1% GEL 100 GM TUBE EXT SCH ×2 (16:56→20:32)
[2022-06-29] MEDS ORDERED: ENOXAPARIN INJ 40 MG/0.4 ML SYR SQ ONE (17:00)
[2022-06-29] MEDS: METOPROLOL TARTRATE 25 MG TAB PO SCH (20:09)
[2022-06-29] MEDS: ACETAMINOPHEN 325 MG TAB PO PRN (20:35)
[2022-06-29] MEDS: MELATONIN 3 MG TAB PO SCH (20:36)
[2022-06-29] MEDS: DULoxetine HCL 30 MG CAP PO SCH (20:36)
[2022-06-29] MEDS: PANTOprazole 40 MG TAB PO SCH (20:37)
[2022-06-29] MEDS: PREGABALIN 50 MG CAP PO SCH (20:38)
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
[2022-06-30] MEDS: ACETAMINOPHEN 325 MG TAB PO PRN ×2 (00:28→05:52)
[2022-06-30] MEDS: LEVOTHYROXINE SODIUM 125 MCG TABLET PO SCH (05:52)
--- NOTE | 2022-06-30 06:11 | Electrocardiogram Report ---
Test Reason : Blood Pressure : / mmHG Vent. Rate : 053 BPM Atrial Rate : 053 BPM P-R Int : 172 ms QRS Dur : 078 ms QT Int : 456 ms P-R-T Axes : 078 -05 043 degrees QTc Int : 427 ms Poor data quality, interpretation may be adversely affected Sinus bradycardia Otherwise normal ECG When compared with ECG of 24-JAN-2015 07:04, No significant change was found Confirmed by Heber Barrera ([id number]) on 06/30/2022 6:10:26 AM Referred By: Confirmed By:Heber Barrera
[2022-06-30 06:15] LABS: Hematocrit (blood only) 33.9 % (37.0-47.0); Hemoglobin 11.1 g/dl (12.0-16.0); Mean Corpuscular Hemoglobin 30.2 pg (25.0-34.0); Mean Corpuscular Hgb Conc 32.7 g/dL (32.0-36.0); Mean Corpuscular Volume 92.4 fL (80.0-100.0); Mean Platelet Volume 9.9 fL (9.4-12.4); Platelet Count 170 K/uL (130-400); RDW Standard Deviation 47.3 fL (36.4-46.3); Red Blood Count 3.67 M/uL (4.20-5.40); White Blood Count 6.92 K/ul (4.8-10.8)
[2022-06-30 06:27] LABS: Calcium 8.5 mg/dl (8.6-10.3); Est GFR (African American) 85.7 ml/min; Magnesium 1.9 mg/dl (1.7-2.4)
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
[2022-06-30] MEDS: DOCUSATE SODIUM/SENNA 50/8.6MG TAB PO SCH (08:42)
[2022-06-30] MEDS: DICLOFENAC SOD 1% GEL 100 GM TUBE EXT SCH ×4 (08:53→20:55)
[2022-06-30] MEDS: ASPIRIN 81 MG ECTAB PO SCH (08:53)
[2022-06-30] MEDS: ACETAMINOPHEN 500 MG TAB PO SCH ×2 (08:53→13:44)
[2022-06-30] MEDS: CHOLECALCIFEROL 5,000 UNITS 125 MCG TAB PO SCH (08:53)
[2022-06-30] MEDS: DULoxetine HCL 30 MG CAP PO SCH ×2 (08:54→20:48)
[2022-06-30] MEDS: VITAMIN B COMPLEX TAB PO SCH (08:54)
[2022-06-30] MEDS: PREGABALIN 50 MG CAP PO SCH ×2 (08:54→21:42)
[2022-06-30] MEDS: PANTOprazole 40 MG TAB PO SCH ×2 (08:54→20:48)
[2022-06-30] MEDS: LIDOCAINE 5% 1 PATCH TD SCH (08:55)
[2022-06-30] MEDS ORDERED: HYDROmorphone INJ 0.5 MG/0.5 ML SYR IV PRN (11:37)
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
[2022-06-30] MEDS: POLYETHYLENE (MIRALAX) 17 GM PACK PO SCH (12:24)
[2022-06-30] MEDS: SODIUM CHLORIDE 0.9% 1000ML 1,000 ML IV SCH (12:24)
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
[2022-06-30] MEDS: MELATONIN 3 MG TAB PO SCH (20:47)
[2022-06-30] MEDS: oxyCODONE HCL IR 5 MG TAB (IMMEDIATE RELEASE) PO PRN (20:49)
[2022-06-30] MEDS: hydrOXYzine HCl 25 MG TAB PO PRN (21:47)
[2022-07-01] MEDS: SODIUM CHLORIDE 0.9% 1000ML 1,000 ML IV SCH (03:04)
[2022-07-01] MEDS: LEVOTHYROXINE SODIUM 125 MCG TABLET PO SCH (06:07)
[2022-07-01 08:09] LABS: Hematocrit (blood only) 31.9 % (37.0-47.0); Hemoglobin 10.4 g/dl (12.0-16.0); Mean Corpuscular Hemoglobin 30.5 pg (25.0-34.0); Mean Corpuscular Hgb Conc 32.6 g/dL (32.0-36.0); Mean Corpuscular Volume 93.5 fL (80.0-100.0); Mean Platelet Volume 10.3 fL (9.4-12.4); Platelet Count 147 K/uL (130-400); RDW Coefficient of Variation 14.1 % (11.5-14.5); RDW Standard Deviation 48.3 fL (36.4-46.3); Red Blood Count 3.41 M/uL (4.20-5.40); White Blood Count 5.96 K/ul (4.8-10.8)
[2022-07-01 08:37] LABS: BUN Creatinine Ratio 25.4 (10-20); Calcium 8.1 mg/dl (8.6-10.3); Est GFR (African American) 101.7 ml/min; Est GFR (Non-African American) 87.8 ml/min; Potassium 4.1 mmol/L (3.5-5.1)
[2022-07-01] MEDS: DOCUSATE SODIUM/SENNA 50/8.6MG TAB PO SCH (09:00)
[2022-07-01] MEDS: VITAMIN B COMPLEX TAB PO SCH (09:00)
[2022-07-01] MEDS: PANTOprazole 40 MG TAB PO SCH ×2 (09:01→21:23)
[2022-07-01] MEDS: DULoxetine HCL 30 MG CAP PO SCH ×2 (09:01→21:23)
[2022-07-01] MEDS: CHOLECALCIFEROL 5,000 UNITS 125 MCG TAB PO SCH (09:01)
[2022-07-01] MEDS: ACETAMINOPHEN 500 MG TAB PO SCH ×3 (09:02→21:22)
[2022-07-01] MEDS: ASPIRIN 81 MG ECTAB PO SCH (09:02)
[2022-07-01] MEDS: PREGABALIN 50 MG CAP PO SCH ×2 (09:04→21:23)
[2022-07-01] MEDS: oxyCODONE HCL IR 5 MG TAB (IMMEDIATE RELEASE) PO PRN ×3 (09:04→21:24)
--- NOTE | 2022-07-01 09:43 | Orthopedic Progress Note ---
Date of Service July 01, 2022 Assessment & Plan (1) Calcaneus fracture: Plan: Patient seen, evaluated, and treated. Patient requires no surgical care. Patient does require extended RLE non weight bearing approximately 6 weeks. PT eval ordered. Reviewed use of SNF and Patient is in agreement if available. Prior to discharge Patient can be placed in well padded posterior splint or CAMBOOT. CAMBOOT ordered may not fit do to edema. Will continue to follow while in house. (2) Right calcaneal fracture: Admission and Anticipated Discharge Date Admission Date: June 30, 2022 Subjective Patient seen at bedside. Pain is well controlled. She relates no complaints and is resting comfortably. Review of Systems Review of Systems: All systems reviewed & are unremarkable except as noted in HPI & below Physical Exam Constitutional: cooperative and comfortable Respiratory: normal respiratory effort Cardiovascular: Rate/Rhythm: regular rate, regular rhythm and + bradycardic Musculoskeletal: Edema right ankle. Psychiatric: Orientation: alert and oriented x 3 Results & Data Vital Signs (Past 12 Hours) Vital Signs Temp Pulse Pulse Resp BP Pulse Ox O2 Del Method 07/01/22 07:50 37.2 C 88 16 151/69 H 90 Room Air 07/01/22 03:23 37.0 C 92 H 20 115/69 94 Room Air 06/30/22 22:00 Nasal Cannula 06/30/22 21:59 91 H 06/30/22 22:23 37.1 C 93 H 20 144/52 H 96 Room Air O2 Flow Rate FiO2 07/01/22 07:50 07/01/22 03:23 06/30/22 22:00 2 28 06/30/22 21:59 06/30/22 22:23
[2022-07-01] MEDS: LIDOCAINE 5% 1 PATCH TD SCH (10:10)
[2022-07-01] MEDS: DICLOFENAC SOD 1% GEL 100 GM TUBE EXT SCH ×4 (10:10→21:23)
[2022-07-01] MEDS: POLYETHYLENE (MIRALAX) 17 GM PACK PO SCH (10:10)
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
[2022-07-01] MEDS ORDERED: ENOXAPARIN INJ 40 MG/0.4 ML SYR SQ ONE (20:00)
[2022-07-01] MEDS: hydrOXYzine HCl 25 MG TAB PO PRN (21:24)
[2022-07-01] MEDS: MELATONIN 3 MG TAB PO SCH (21:53)
[2022-07-01] MEDS: METOPROLOL TARTRATE 25 MG TAB PO SCH (21:53)
[2022-07-02] MEDS: LEVOTHYROXINE SODIUM 125 MCG TABLET PO SCH (06:27)
[2022-07-02 07:47] LABS: Hematocrit (blood only) 30.4 % (37.0-47.0); Hemoglobin 9.9 g/dl (12.0-16.0); Mean Corpuscular Hemoglobin 30.7 pg (25.0-34.0); Mean Corpuscular Hgb Conc 32.6 g/dL (32.0-36.0); Mean Corpuscular Volume 94.4 fL (80.0-100.0); Mean Platelet Volume 9.7 fL (9.4-12.4); Platelet Count 141 K/uL (130-400); RDW Coefficient of Variation 14.1 % (11.5-14.5); RDW Standard Deviation 48.2 fL (36.4-46.3); Red Blood Count 3.22 M/uL (4.20-5.40); White Blood Count 5.83 K/ul (4.8-10.8)
[2022-07-02 08:04] LABS: BUN Creatinine Ratio 26.6 (10-20); Calcium 8.4 mg/dl (8.6-10.3); Est GFR (African American) 99.1 ml/min; Est GFR (Non-African American) 85.5 ml/min; Potassium 4.1 mmol/L (3.5-5.1)
--- NOTE | 2022-07-02 08:43 | XRay Report ---
XR chest 1V portable HISTORY: 77 years-old Female L rib fractures, eval infiltrates/pneumothorax acute chest pain was rep orted left-sided rib fractures COMPARISON: Chest radiograph 06/30/2022, chest CT 06/29/2022 TECHNIQUE: AP view of the chest FINDINGS: Cardiac silhouette is enlarged. Large hiatal hernia. No pneumothorax, pleural effusion, airspace cons olidation or overt pulmonary edema. Degenerative changes of the shoulders and spine. IMPRESSION: 1. Cardiomegaly without acute process. 2. Large hiatal hernia. 3. The acute nondisplaced left-sided rib fractures seen on comparison chest CT are not visualized by radiography. No pneumothorax. ACT 112: Negative or not required by law. The above report was generated using voice recognition software. It may contain grammatical, syntax o r spelling errors. Electronically signed by: Alexis Torrez M.D. 07/02/2022 8:42 AM
[2022-07-02] MEDS: ACETAMINOPHEN 500 MG TAB PO SCH ×3 (09:00→20:30)
[2022-07-02] MEDS: oxyCODONE HCL IR 5 MG TAB (IMMEDIATE RELEASE) PO PRN (09:00)
[2022-07-02] MEDS: PREGABALIN 50 MG CAP PO SCH ×2 (09:00→20:35)
[2022-07-02] MEDS: PANTOprazole 40 MG TAB PO SCH ×2 (09:01→20:31)
[2022-07-02] MEDS: DOCUSATE SODIUM/SENNA 50/8.6MG TAB PO SCH (09:01)
[2022-07-02] MEDS: CHOLECALCIFEROL 5,000 UNITS 125 MCG TAB PO SCH (09:01)
[2022-07-02] MEDS: DULoxetine HCL 30 MG CAP PO SCH ×2 (09:01→20:31)
[2022-07-02] MEDS: ASPIRIN 81 MG ECTAB PO SCH (09:01)
[2022-07-02] MEDS: METOPROLOL TARTRATE 25 MG TAB PO SCH ×2 (09:01→20:29)
[2022-07-02] MEDS: LOSARTAN POTASSIUM 25 MG TAB PO SCH (09:02)
[2022-07-02] MEDS: LIDOCAINE 5% 1 PATCH TD SCH (09:02)
[2022-07-02] MEDS: VITAMIN B COMPLEX TAB PO SCH (09:02)
[2022-07-02] MEDS ORDERED: IRON SUCROSE 200 MG in 0.9 % SODIUM CHLORIDE 100 ML IV ONE (10:00)
[2022-07-02] MEDS: DICLOFENAC SOD 1% GEL 100 GM TUBE EXT SCH ×3 (10:38→20:30)
[2022-07-02] MEDS: POLYETHYLENE (MIRALAX) 17 GM PACK PO SCH (10:39)
[2022-07-02 15:21] LABS: Hematocrit (blood only) 33.2 % (37.0-47.0); Hemoglobin 10.7 g/dl (12.0-16.0)
[2022-07-02] MEDS ORDERED: OPTIRAY 320 500ml IV ONE (18:29)
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
[2022-07-02] MEDS: MELATONIN 3 MG TAB PO SCH (20:35)
[2022-07-03] MEDS: oxyCODONE HCL IR 5 MG TAB (IMMEDIATE RELEASE) PO PRN ×2 (05:02→13:17)
[2022-07-03] MEDS: LEVOTHYROXINE SODIUM 125 MCG TABLET PO SCH (05:03)
[2022-07-03 06:24] LABS: Hematocrit (blood only) 34.4 % (37.0-47.0); Hemoglobin 11.2 g/dl (12.0-16.0); Mean Corpuscular Hemoglobin 30.1 pg (25.0-34.0); Mean Corpuscular Hgb Conc 32.6 g/dL (32.0-36.0); Mean Corpuscular Volume 92.5 fL (80.0-100.0); Platelet Count 182 K/uL (130-400); RDW Coefficient of Variation 13.7 % (11.5-14.5); RDW Standard Deviation 46.5 fL (36.4-46.3); Red Blood Count 3.72 M/uL (4.20-5.40); White Blood Count 6.09 K/ul (4.8-10.8)
[2022-07-03 06:31] LABS: Creatinine Clr Calc Pharmacy 86.6 ml/min; Est GFR (African American) 98.6 ml/min
[2022-07-03] MEDS ORDERED: IRON SUCROSE 200 MG in 0.9 % SODIUM CHLORIDE 100 ML IV ONE (08:00)
[2022-07-03] MEDS: POLYETHYLENE (MIRALAX) 17 GM PACK PO SCH (08:09)
[2022-07-03] MEDS: PREGABALIN 50 MG CAP PO SCH (08:13)
[2022-07-03] MEDS: VITAMIN B COMPLEX TAB PO SCH (08:13)
[2022-07-03] MEDS: PANTOprazole 40 MG TAB PO SCH (08:13)
[2022-07-03] MEDS: ACETAMINOPHEN 500 MG TAB PO SCH ×2 (08:14→13:19)
[2022-07-03] MEDS: CHOLECALCIFEROL 5,000 UNITS 125 MCG TAB PO SCH (08:15)
[2022-07-03] MEDS: DOCUSATE SODIUM/SENNA 50/8.6MG TAB PO SCH (08:15)
[2022-07-03] MEDS: ASPIRIN 81 MG ECTAB PO SCH (08:16)
[2022-07-03] MEDS: DICLOFENAC SOD 1% GEL 100 GM TUBE EXT SCH ×2 (08:16→13:18)
[2022-07-03] MEDS: METOPROLOL TARTRATE 25 MG TAB PO SCH (08:17)
[2022-07-03] MEDS: DULoxetine HCL 30 MG CAP PO SCH (08:17)
[2022-07-03] MEDS: LIDOCAINE 5% 1 PATCH TD SCH (08:18)
[2022-07-03] MEDS: LOSARTAN POTASSIUM 25 MG TAB PO SCH (08:18)
[2022-07-03] MEDS ORDERED: CALCITONIN SALMON NA 200 IU/AC 3.7 ML BTL SCH (09:00)
[2022-07-03] MEDS ORDERED: cephALEXin 500 MG CAP PO STA (10:13)
[2022-07-03] MEDS ORDERED: APIXABAN 2.5 MG TAB PO STA (10:13)
[2022-07-03] MEDS ORDERED: DOXYCYCLINE HYCLATE 100 MG CAP PO STA (10:13)
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
== END 2022-07-03 16:34 | DRG 501 ==
LOC: ED 10:15 → SUATTDRO 14:42 → 2E 14:42 → INTOOBSV 14:42 → 2E 16:05

== ENCOUNTER 2024-02-14 08:34 | Inpatient (IN) ==
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
[2024-02-14 09:09] LABS: Basophils # (auto) 0.04 K/uL (0.00-0.20); Basophils % (auto) 0.2 %; Eosinophils # (auto) 0.01 K/uL (0.00-0.50); Eosinophils % (auto) 0.1 %; Hematocrit (blood only) 49.4 % (37.0-47.0); Hemoglobin 17.2 g/dl (12.0-16.0); Immature Granulocytes # (auto) 0.06 K/uL (0.01-0.20); Immature Granulocytes % (auto) 0.4 %; Lymphocytes % (auto) 8.5 %; Mean Corpuscular Hemoglobin 30.1 pg (25.0-34.0); Mean Corpuscular Hgb Conc 34.8 g/dL (32.0-36.0); Mean Corpuscular Volume 86.4 fL (80.0-100.0); Mean Platelet Volume 10.2 fL (9.4-12.4); Monocytes % (auto) 9.1 %; Neutrophils # (auto) 13.49 K/uL (1.40-6.50); Neutrophils % (auto) 81.7 %; Platelet Count 280 K/uL (130-400); RDW Coefficient of Variation 12.9 % (11.5-14.5); RDW Standard Deviation 39.9 fL (36.4-46.3); Red Blood Count 5.72 M/uL (4.20-5.40)
[2024-02-14] MEDS: ONDANSETRON INJ 2 MG/ML 2 ML VIAL IV STA (09:09)
[2024-02-14] MEDS: BENZONATATE 100 MG CAPSULE PO ONE (09:12)
--- OUTSIDE RECORDS SUMMARY | 2024-02-14 09:22 | External Medical Summary | Summary of Care ---
Author Name Unknown Organization [facility] Address [address] [place] [address] Phone [phone] Care Team Providers Care Sales Floor Associate Name Role Phone Adam Lunsford Primary Care Provider Reason for Visit * Reason Onset Date Comments Information 07/26/2023 Encounter Details Date Type Department Care Team (Late st Contact Info) Description 07/26/2023 Telephone Radiology [facility] [address] [facility] [place] [address] Erika Noguera DO [address] [place] [address] Information Allergies Active Allergy Reactions Criticality Noted Date Comments Ganesh Inhibitors Cough Low 11/24/2005 Morphine And Codeine Other (Please comment) 04/2018 Confusion Nsaids Bleeding High 02/18/2015 documented as of this encounter (statuses as of 10/25/2023) Medications Medication Sig Dispensed Refills Start Date End Date Status MULTI-VITAMIN PO TABS one a day Active FERROUS SULFATE 325 (65 FE) MG PO TABS 2 tabs daily Active VITAMIN D 1000 UNITS PO TABS 3 tabs daily Active MELATIN 3-1 MG PO TABS daily Active albuterol (PROVENTIL HFA) 108 (90 BASE) MCG/ACT inhaler Inhale 2 Puffs by mouth every 6 hours as needed for Shortness of Breath or Wheezing. 1 Inhaler 5 02/10/2016 Active Additional Information Patient not taking.Reported on 07/10/2020 Fluticasone Propionate 50 MCG/ACT Nasal Suspension (Flonase) Administer 2 Sprays into nostril in the morning. 06/24/2020 Active Losartan Potassium 25 MG Oral Tablet (Cozaar) TAKE ONE TABLET BY MOUTH EVERY MORNING 90 Tablet 1 05/17/2022 Active Calcitonin ([place]) 200 UNIT/ACT Nasal Solution Administer 1 [place] into nostril in the morning. Active DULoxetine HCl 30 MG Oral Capsule Delayed Release Particles (Cymbalta) Take 1 Capsule by mouth 2 times a day. 200 Capsule 3 11/19/2022 Active Losartan Potassium 25 MG Oral Tablet (Cozaar) take 1 tablet (25 MG) by mouth daily in the morning 100 Tablet 3 04/22/2023 Active Atorvastatin Calcium 40 MG Oral Tablet (Lipitor) take 1 tablet by mouth at bedtime 100 Tablet 3 04/25/2023 Active hydrOXYzine HCl 25 MG Oral Tablet take 1 tablet by mouth twice a day As Needed for Anxiety 180 Tablet 3 04/25/2023 Active Levothyroxine Sodium 112 MCG Oral Tablet (Levoxyl) take 1 tablet by mouth daily in the morning 100 Tablet 5 04/25/2023 Active Pantoprazole Sodium 40 MG Oral Tablet Delayed Release (Protonix) take 1 tablet by mouth twice a day 180 Tablet 3 04/25/2023 Active Metoprolol Succinate ER 25 MG Oral Tablet Extended Release 24 Hour (Toprol XL) Take 1 Tablet by mouth in the morning. 100 Tablet 3 06/07/2023 Active documented as of this encounter (statuses as of 10/25/2023) Active Problems Problem Noted Date Diagnosed Date Restless leg syndrome 12/17/2021 Anxiety 06/11/2021 Upper gastrointestinal hemorrhage 06/11/2021 Right arm cellulitis 06/11/2021 Cholelithiasis 09/05/2018 Insomnia 09/05/2018 Heller's esophagus 09/05/2018 Osteoarthritis 09/05/2018 Polyneuropathy 09/05/2018 History of stroke 09/05/2018 Hiatal hernia 09/05/2018 B12 deficiency 09/05/2018 Iron deficiency anemia 09/05/2018 Gout 09/05/2018 Dyslipidemia, goal LDL below 100 02/23/2018 Anemia 02/18/2015 Fibromyalgia 07/18/2014 Depression 07/18/2014 Family history of premature CAD 01/13/2011 Hypothyroidism 01/20/2010 Vertigo 08/06/2009 Chronic otitis externa 08/06/2009 Sensorineural hearing loss, bilateral 08/06/2009 Subjective tinnitus 08/06/2009 Esophageal reflux 08/06/2009 Bruxism, sleep-related 08/06/2009 Benign neoplasm of colon 01/25/2006 Overview: hyperplastic ade;y--repeat 10 years Cough 11/24/2005 NONALLERGIC RHINITIS 11/24/2005 Deviated nasal septum 11/24/2005 HTN, goal to be determined Hypothyroidism Obesity, BMI not known documented as of this encounter (statuses as of 10/25/2023) Resolved Problems Problem Noted Date Diagnosed Date Resolved Date Single subsegmental pulmonar y embolism without acute cor pulmonale 06/11/2021 06/03/2023 ESR raised 02/18/2015 09/05/2018 RECURRENT ACUTE SINUSITIS 08/06/2009 Temporomandibular joint diso rders, unspecified 08/06/2009 09/05/2018 Dyspnea and respiratory abnormality 08/06/2009 09/05/2018 Overview: ICD-10 update of inactive term Dyslipidemia, goal to be determined 09/05/2018 documented as of this encounter (statuses as of 10/25/2023) Immunizations Name Administration Dates Next Due Pneumococcal Polysaccharide PPV23 (Pneumovax) 03/18/2011 Seasonal Influenza, PF, 6 M & above, IM , (FluLaval or Fluzone) 02/23/2018 02/23/2019 Seasonal Influenza, Quadriva lent Hd, 65+ Yrs 11/05/2021 Seasonal Influenza, Trivalen t, (IIV3), with Preserv, (Fluzone) 10/31/2013,11/21/2012,01/24/2012 TDAP, Age 7 and older, IM (Adacel) 08/22/2011 Varicella Zoster Vaccine (Adult) 03/24/2011 documented as of this encounter Social History Tobacco Use Types Packs/Day Years Used Date Smoking Tobacco: Never Smokeless Tobacco: Never Comments:rare passive smoke when daughter drives her in her car. Alcohol Use Standard Drinks/Week Comments No 0 (1 standard drink = 0.6 oz pur e alcohol) Hunger Vital Sign Answer Date Recorded Within the past 12 months, y ou worried that your food would run out before you got the money to buy more. Never true 08/12/19 24 Within the past 12 months, t he food you bought just didn't last and you didn't have money to get more. Never true 08/12/2023 Childcare Answer Date Recorded Do you feel overwhelmed with taking care of a child, family member or friend? No 08/12/2023 Does your family need help f inding childcare? (Household - for ages 0-17 years) Not on file 08/12/2023 Clothing Answer Date Recorded Have you been unable to get clothing when it was really needed? No 08/12/2023 Is your family able to get c lothes or diapers when needed? (Household - for ages 0-17 years) Not on file 08/12/2023 Personal Safety Answer Date Recorded Do you feel unsafe or have concerns for your saf ety? No 08/12/2023 Do you have concerns for you r family's safety? (Household - for ages 0-17 years) Not on file 08/12/2023 Utilities Answer Date Recorded Do you have trouble paying y our heating, water, or electric bill? No 08/12/2023 Is your family able to pay t he heat, water, or electric bill? (Household - for ages 0-17 years) Not on file 08/12/2023 Does your family have access to good internet? (Household - for ages 0-17 years) Not on file 08/12/2023 Employment Status Answer Date Recorded Are you unemployed or without regular income? No 08/12/2023 Does the household have a re lar source of income? (Household - for ages 0-17 years) Not on file 08/12/2023 Social Connections Answer Date Recorded How often do you feel lonely or isolated from th ose around you? Never 08/12/2023 Financial Resource Strain Answer Date R ecorded Do you have any trouble payi ng for your medications, or do you think you might in the future? No 08/12/2023 Does your family have troubl e paying for medicine? (Household - for ages 0-17 years) Not on file 08/12/2023 Transportation Needs Answer Date Record ed Do you have trouble getting a ride to medical visits or work? (Adult - for ages 18 years and over) Not on file 08/12/2023 Does your family have a hard time getting a ride to doctors visits? (Household - for ages 0-17 years) Not on file 08/12/2023 Has lack of transportation k ept you from medical appointments, meetings, work, or from getting things needed for daily living? Check all that apply. No 08/12/2023 Do you (or your family) have trouble finding or paying for a ride (transportation)? (Household - for ages 0-17 years) Not on file 08/12/2023 Housing Stability Answer Date Recorded Do you currently live in a s helter or have no steady place to sleep at night? No 08/12/2023 Do you think you are at risk of becoming homeless? (Adult - for ages 18 years and over) Not on file 08/12/2023 Does your family worry about paying for your home or becoming homeless? (Household - for ages 0-17 years) Not on file 0 08/12/2023 Are you homeless or worried that you might be in the future? No 08/12/2023 Are you (or your family) berry eless or worried that you might be in the future? (Household - for ages 0-17 years) Not on file Food Insecurity Answer Date Recorded Do you need food for this week? No 08/12/2023 Are you able to get enough f ood for your family? (Household - for ages 0-17 years) Not on file 08/12/2023 Does your family need food t his week? (Household - for ages 0-17 years) Not on file 08/12/2023 Do you always have enough fo od for your family? (Household - for ages 0-17 years) Not on file 08/12/2023 Sex and Gender Information Value Date Recorded Sex Assigned at Not on file Gender Identity Not on file Sexual Orientation Not on file Job Start Date Occupation Industry Not on file Not on file Not on file documented as of this encounter Miscellaneous Notes * Telephone Encounter - Paige Sims RDMS - 07/26/2023 12:45 PM EDT Following completion of right breast ultrasound guided core biopsy, discharge instructions were provided and patient expressed understanding. Specimen was delivered to the lab at 12:45 pm. documented in this encounter Plan of Treatment Upcoming Encounters Date Type Department Care Team (Late st Contact Info) Description 07/18/2024 3:30 PM EDT Imaging Radiology [address] [place] [address] Health Maintenance Due Date Last Done Comments Depression Monitoring 1957 Albumin/Creatinine Ratio 02/21/1962 Heller's Esophagus Surveilance 01/10/2016 01/09/2013, 05/23/2012 COVID-19 Vaccine ( season) 2023 03/02/2023 Influenza Vaccine (FLU shot) (#1) 2023 11/05/2021, 12/27/2018, 02/23/2018, Additional history exists GFR 04/20/2024 04/21/2023, 2 02/2022, 07/04/2022, Additional history exists TSH 04/20/2024 04/21/2023, 06/0 05/2020, 09/04/2019, Additional history exists DXA Scan 11/30/2029 11/30/2022 DTap/Tdap Vaccines (3 - Td or Tdap) 05/04/2031 05/03/2021, 08/22/2011, 08/22/2011 Pneumococcal Vaccine: 65+ Years Completed 08/30/2017, 03/18/2011, 03/18/2011 Zoster Vaccines Completed 08/04/2020, 11/23, 03/24/2011 HPV (Gardasil) Vaccine Aged Out No lo nger eligible based on patient's age to complete this topic Hepatitis B Vaccine Aged Out No longe r eligible based on patient's age to complete this topic MENINGOCOCCAL (MENACTRA/MENVEO) Aged Out No longer eligible based on patient's age to complete this topic documented as of this encounter Medical Devices Not on filedocumented as of this encounter Care Teams Sales Floor Associate Relationship Specialty Start Date End Date Adam Lunsford CRNP [address] [place] [address] PCP - General Nurse Practitioner 03/12/21 documented as of this encounter
--- OUTSIDE RECORDS SUMMARY | 2024-02-14 09:22 | External Medical Summary | Summary of Care ---
Author Name Unknown Organization [facility] Address [address] [place] [address] Phone [phone] Care Team Providers Care [employer] Volleyball Coach Name Role Phone Adam Lunsford Primary Care Provider Encounter Details Date Type Department Care Team (Late st Contact Info) Description 01/09/2024 Orders Only Outcomes Research Department [address], [place] [id number] Merly Skinner CHRA My[facility] Research Other*[id number] Allergies Active Allergy Reactions Criticality Noted Date Comments Ganesh Inhibitors Cough Low 11/24/2005 Morphine And Codeine Other (Please comment) 04/2018 Confusion Nsaids Bleeding High 02/18/2015 documented as of this encounter (statuses as of 01/09/2024) Medications MULTI-VITAMIN PO TABS one a day Active FERROUS SULFATE 325 (65 FE) MG PO TABS 2 tabs daily Active VITAMIN D 1000 UNITS PO TABS 3 tabs daily Act kong MELATIN 3-1 MG PO TABS daily Active albuterol (PROVENTIL HFA) 108 (90 BASE) MCG/ACT inhaler Inhale 2 Puffs by mouth every 6 hours as needed for Shortness of Breath or Wheezing. 1 Inhaler 5 6 Active Additional Information Patient not taking.Reported on 07/10/2020 Fluticasone Propionate 50 MCG/ACT Nasal Suspension (Flonase) Administer 2 Sprays into nostril in the morning. 1 Active Losartan Potassium 25 MG Oral Tablet (Cozaar) TAKE ONE TABLET BY MOUTH EVERY MORNING 90 Tablet 1 3 Active Calcitonin ([place]) 200 UNIT/ACT Nasal Solution Administer 1 [place] into nostril in the morning. Active DULoxetine HCl 30 MG Oral Capsule Delayed Release Particles (Cymbalta) Take 1 Capsule by mouth 2 times a day. 200 Capsule 3 09/13/2023 6:24 PM EDT 3 Active Losartan Potassium 25 MG Oral Tablet (Cozaar) take 1 tablet (25 MG) by mouth daily in the morning 100 Tablet 3 11/04/2023 8:52 AM EDT 4 Active Atorvastatin Calcium 40 MG Oral Tablet (Lipitor) take 1 tablet by mouth at bedtime 100 Tablet 3 12/09/2023 7:21 AM EDT 4 Active hydrOXYzine HCl 25 MG Oral Tablet take 1 tablet by mouth twice a day As Needed for Anxiety 180 Tablet 3 11/19/2023 8:13 AM EDT 4 Active Levothyroxine Sodium 112 MCG Oral Tablet (Levoxyl) take 1 tablet by mouth daily in the morning 100 Tablet 5 01/05/2024 7:31 AM EST 4 Active Pantoprazole Sodium 40 MG Oral Tablet Delayed Release (Protonix) take 1 tablet by mouth twice a day 180 Tablet 3 12/26/2023 11:25 AM EST 4 Active Metoprolol Succinate ER 25 MG Oral Tablet Extended Release 24 Hour (Toprol XL) Take 1 Tablet by mouth in the morning. 100 Tablet 3 12/19/2023 1:39 PM EDT 4 Active Diclofenac Sodium 1 % External Gel (Voltaren) apply 2 g topically four times daily As Needed for Pain; apply to single elbow, wrist or hand; for hand includes palm/fingers/andry k of hand 300 g 10/14/2023 12:02 PM EDT 4 Active Pregabalin 75 MG Oral Capsule (Lyrica) Take 1 Capsule by mouth 2 times a day. 200 Capsule 1 12/20/2023 7:25 AM EDT 4 Active documented as of this encounter (statuses as of 01/09/2024) Active Problems Problem Noted Date Diagnosed Date Restless leg syndrome 12/17/2021 Anxiety 06/11/2021 Upper gastrointestinal hemorrhage 06/11/2021 Cholelithiasis 09/05/2018 Insomnia 09/05/2018 Heller's esophagus 09/05/2018 Osteoarthritis 09/05/2018 Polyneuropathy 09/05/2018 History of stroke 09/05/2018 Hiatal hernia 09/05/2018 B12 deficiency 09/05/2018 Iron deficiency anemia 09/05/2018 Gout 09/05/2018 Dyslipidemia, goal LDL below 100 02/23/2018 Anemia 02/18/2015 Fibromyalgia 07/18/2014 Depression 07/18/2014 Family history of premature CAD 01/13/2011 Chronic otitis externa 08/06/2009 Sensorineural hearing loss, bilateral 08/06/2009 Subjective tinnitus 08/06/2009 Esophageal reflux 08/06/2009 Bruxism, sleep-related 08/06/2009 Benign neoplasm of colon 01/25/2006 Overview (03/01/2006): hyperplastic ade;y--repeat 10 years Cough 11/24/2005 NONALLERGIC RHINITIS 11/24/2005 Deviated nasal septum 11/24/2005 HTN, goal to be determined Hypothyroidism Obesity, BMI not known documented as of this encounter (statuses as of 01/09/2024) Resolved Problems Problem Noted Date Diagnosed Date Resolved Date Single subsegmental pulmonar y embolism without acute cor pulmonale 06/11/2021 06/03/2023 Right arm cellulitis 06/11/2021 024 Overview (12/13/2023): historical ESR raised 02/18/2015 09/05/2018 Hypothyroidism 01/20/2010 12/13/2023 Vertigo 08/06/2009 12/13/2023 Overview (12/13/2023): historical RECURRENT ACUTE SINUSITIS 08/06/2009 Temporomandibular joint diso rders, unspecified 08/06/2009 09/05/2018 Dyspnea and respiratory abnormality 08/06/2009 09/05/2018 Overview (12/14/2016): ICD-10 update of inactive term Dyslipidemia, goal to be determined 09/05/2018 documented as of this encounter (statuses as of 01/09/2024) Immunizations Name Administration Dates Next Due Pneumococcal Polysaccharide PPV23 (Pneumovax) 03/18/2011 Seasonal Influenza Vac., MDV , IM, 0.5 mL (Fluzone) 10/31/2013,11/21/2012,01/24/2012 Seasonal Influenza, PF, 6 M & above, IM , (FluLaval or Fluzone) 02/23/2018 02/23/2019 Seasonal Influenza, Quadriva lent Hd, 65+ Yrs 11/05/2021 TDAP, Age 7 and older, IM (Adacel) [...] 08/12/2023 Does the household have a re gular source of income? 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 Not on file Not on baljit e documented as of this encounter Plan of Treatment Upcoming Encounters Date Type Department Care Team (Late st Contact Info) Description 07/18/2024 3:30 PM EDT Imaging Radiology [address] [place] [address] Scheduled Orders Name Type Priority Associated Diagnoses Orde r Schedule MYCODE SUBSEQUENT ADULT Lab Routine My[facility] Research Other*[id number] Every 6 Months for 2 Occurrences starting 01/09/2024 until 01/28/2025 Health Maintenance Due Date Last Done Comments Depression Monitoring 1957 Albumin/Creatinine Ratio 02/21/1962 Heller's Esophagus Surveilance 01/10/2016 01/09/2013, 05/23/2012 COVID-19 Vaccine ( season) 2023 03/02/2023 Influenza Vaccine (FLU shot) (#1) 2023 11/05/2021, 12/27/2018, 02/23/2018, Additional history exists GFR 04/20/2024 04/21/2023, 05/2 02/2022, 07/04/2022, Additional history exists TSH 04/20/2024 [...] Not on filedocumented as of this encounter Visit Diagnoses Diagnosis My[facility] Research Other*[id number] documented in this encounter Care Teams [employer] Volleyball Coach Relationship Specialty Start Date End Date Adam Lunsford CRNP [address] [address] PCP - General Nurse Practitioner 03/12/21 documented as of this encounter
--- OUTSIDE RECORDS SUMMARY | 2024-02-14 09:22 | External Medical Summary | Summary of Care ---
Author Name Unknown Organization [facility] Address [address] [place] [address] Phone [phone] Care Team Providers Care Score Caller Name Role Phone Adam Lunsford Primary Care Provider Reason for Visit * Reason Onset Date Comments Medical Records Request 08/12/2023 [facility] Encounter Details Date Type Department Care Team (Late st Contact Info) Description 08/12/2023 Telephone Laboratory [address] [place] [id number] Adam Lunsford CRNP [address] [place] [address] Medical Records Request ([facility] ) Allergies Active Allergy Reactions Criticality Noted Date Comments Ganesh Inhibitors Cough Low 11/24/2005 Morphine And Codeine Other (Please comment) 04/2018 Confusion Nsaids Bleeding High 02/18/2015 documented as of this encounter (statuses as of 11/11/2023) Medications Medication Sig Dispensed Refills Start Date [...] MORNING 90 Tablet 1 05/17/2022 Active Calcitonin ([place]) 200 UNIT/ACT Nasal Solution Administer 1 [place] into nostril in the morning. Active DULoxetine [...] as of this encounter (statuses as of 11/11/2023) Active Problems Problem Noted Date Diagnosed Date [...] as of this encounter (statuses as of 11/11/2023) Resolved Problems Problem Noted Date Diagnosed Date Resolved Date Single subsegmental pulmonar y embolism without acute cor pulmonale 06/11/2021 06/03/2023 ESR raised 02/18/2015 09/05/2018 RECURRENT ACUTE SINUSITIS 08/06/2009 Temporomandibular joint diso rders, unspecified 08/06/2009 09/05/2018 Dyspnea and respiratory abnormality 08/06/2009 09/05/2018 Overview: ICD-10 update of inactive term Dyslipidemia, goal to be determined 09/05/2018 documented as of this encounter (statuses as of 11/11/2023) Immunizations Name Administration Dates Next Due Pneumococcal [...] No 08/12/2023 Does the household have a [facility] source of income? (Household - for ages [...] encounter Miscellaneous Notes * Telephone Encounter - Ryann Miller OSA - 08/12/2023 10:47 AM EDT Received request for records 08.12.23 from [facility]. I sent auth to HIM [id number] on 08.12.23. To check status of records, please call HIM directly at [phone] documented in this encounter Plan of Treatment Upcoming Encounters Date Type Department Care Team (Late st Contact Info) Description 07/18/2024 3:30 PM EDT Imaging Radiology [address] [place] [address] Health Maintenance Due Date Last Done Comments Depression Monitoring 1957 Albumin/Creatinine Ratio 02/21/1962 Heller's Esophagus Surveilance 01/10/2016 01/09/2013, 05/23/2012 COVID-19 Vaccine ( season) 2023 03/02/2023 Influenza Vaccine (FLU shot) (#1) 2023 11/05/2021, 12/27/2018, 02/23/2018, Additional history exists GFR 04/20/2024 04/21/2023, 05/2 02/2022, 07/04/2022, Additional history exists TSH 04/20/2024 04/21/2023, 0605/2020, 09/04/2019, Additional history exists DXA Scan 11/30/2029 [...] filedocumented as of this encounter Care Teams Score Caller Relationship Specialty Start Date End Date Adam Lunsford CRNP [address] [facility] [address] [place] [address] PCP - General Nurse Practitioner 03/12/21 documented as of this encounter
[2024-02-14 09:24] LABS: Albumin Globulin Ratio 1.3 (0.9-2); Albumin Level 4.9 gm/dl (3.4-5.0); BUN Creatinine Ratio 34.7 (10-20); Bilirubin,Total 1.5 mg/dl (0.2-1.0); Calcium 10.6 mg/dl (8.6-10.3); Creatinine Clr Calc Pharmacy 53.2 ml/min; Globulin 3.7 gm/dl (2.5-4.0); Potassium 3.1 mmol/L (3.5-5.1); Total Protein 8.6 gm/dl (6.0-8.3)
--- NOTE | 2024-02-14 09:28 | XRay Report ---
XR chest 1V portable CLINICAL HISTORY: Chest pain, nonspecific TECHNIQUE: Single frontal radiograph of the chest was obtained. Comparison: Comparison is made to chest radiograph 07/29/2023 FINDINGS: No lines and tubes are seen. The cardiomediastinal silhouette is normal. The lungs are clear. No evid ence of pleural effusion or pneumothorax. IMPRESSION: No acute abnormalities and in particular no radiographic evidence of pneumonia. ACT 112: Negative or not required by law. Electronically signed by: Bharathi Coker M.D. 02/14/2024 9:27 AM
[2024-02-14 09:39] LABS: Troponin I High Sensitivity 4201.7 pg/ml (0-14)
[2024-02-14 09:49] LABS: Adenovirus PCR Not Detected (NotDetected); Bordetella parapertussis PCR Not Detected (NotDetected); Bordetella pertussis PCR Not Detected (NotDetected); Chlamydia pneumoniae PCR Not Detected (NotDetected); Coronavirus 229E PCR Not Detected (NotDetected); Coronavirus CoV-2 (COVID19)PCR Not Detected (NotDetected); Coronavirus HKU1 PCR Not Detected (NotDetected); Coronavirus NL63 PCR Not Detected (NotDetected); Coronavirus OC43PCR Not Detected (NotDetected); Human Metapneumovirus PCR Not Detected (NotDetected); Influenza A PCR Not Detected (NotDetected); Influenza B PCR Not Detected (NotDetected); Mycoplasma pneumoniae PCR Not Detected (NotDetected); Parainfluenza Virus 1 PCR Not Detected (NotDetected); Parainfluenza Virus 2 PCR Not Detected (NotDetected); Parainfluenza Virus 3 PCR Not Detected (NotDetected); Parainfluenza Virus 4 PCR Not Detected (NotDetected); Respiratory Syncytial VirusPCR Not Detected (NotDetected); Rhinovirus/Enterovirus PCR Not Detected (NotDetected)
[2024-02-14] MEDS ORDERED: HEPARIN SOD (PORCINE) 1000 UNIT/ML IV ONE (09:58)
[2024-02-14] MEDS: ASPIRIN CHEW 324 MG PO STA (10:02)
[2024-02-14] MEDS: TICAGRELOR 90 MG TAB PO ONE (10:03)
[2024-02-14] MEDS: HEPARIN SOD (PORCINE) 1000 UNIT/ML IV ONE (10:04)
[2024-02-14] MEDS: HEPARIN SODIUM/DEXTROSE 25,000 UNITS/500 ML BAG IV SCH (10:10)
[2024-02-14 10:17] LABS: INR 1.1 (0.9-1.1); Partial Thromboplastin Ratio 0.9; Partial Thromboplastin Time 25 Seconds (21-31); Prothrombin Time 11.4 Seconds (9.0-12.0)
[2024-02-14] MEDS: Heparin IV Adult Wt-Based Low-Dose w/ INITIAL Bolus Protocol IV STA (10:20)
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
[2024-02-14] MEDS: METOPROLOL TARTRATE 1 MG/ML VIAL IV STA (11:53)
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
[2024-02-14] MEDS: NITROGLYCERIN 2% OINTMENT 30GM TUBE EXT SCH (12:20)
[2024-02-14] MEDS: METOPROLOL TARTRATE 1 MG/ML VIAL IV SCH (13:10)
[2024-02-14] MEDS ORDERED: hydrOXYzine HCl 25 MG TAB PO PRN (13:11)
[2024-02-14 13:20] LABS: Magnesium 2.1 mg/dl (1.7-2.4)
[2024-02-14] MEDS ORDERED: PANTOPRAZOLE BOLUS/DRIP IV STA (13:27)
[2024-02-14] MEDS: POTASSIUM CHLORIDE / WTR 10 MEQ/100 ML PLCT IV SCH (13:53)
[2024-02-14] MEDS: POTASSIUM CHLORIDE CRTAB 20 MEQ TABCR PO STA (13:53)
[2024-02-14] MEDS: PANTOprazole 80 MG in DEXTROSE 5% 100 ML IV ONE (14:16)
[2024-02-14] MEDS: PANTOprazole 40 MG in DEXTROSE 5% MINI-B 100 ML IV SCH (14:32)
--- NOTE | 2024-02-14 15:47 | Ultrasound Report ---
US liver CLINICAL HISTORY: Transaminitis. Nausea and vomiting. COMPARISON STUDY: Abdominal ultrasound February 20, 2017. CT of the abdomen and pelvis July 29, 2023 . FINDINGS: The pancreas is obscured by overlying bowel gas. No hepatic lesions are identified. Common bile duct is mildly dilated, measuring 9 mm in caliber. No common bile duct calculi are identified by sonography. There are gallstones within the gallbladder. The gallbladder is moderately distended. No sonographic Shepherd sign was elicited. There is no gallbladder wall thickening. No pericholecystic fl uid was present. There is no right hydronephrosis. IMPRESSION: 1. Mild dilatation of the common bile duct. No common bile duct calculi identified although these may be occult by sonography. Findings could be correlated with obstructive liver function tests. 2. Cholelithiasis with distended gallbladder. No sonographic Shepherd sign or gallbladder wall thickeni ng to strongly suggest acute cholecystitis. A nuclear medicine hepatobiliary scan could be obtained i f indicated. 3. Obscured pancreas. ACT 112: Negative or not required by law. Electronically signed by: Jose Buck M.D. 02/14/2024 3:45 PM
--- NOTE | 2024-02-14 16:21 | Electrocardiogram Report ---
Test Reason : Blood Pressure : */* mmHG Vent. Rate : 97 BPM Atrial Rate : 97 BPM P-R Int : 188 ms QRS Dur : 90 ms QT Int : 362 ms P-R-T Axes : 55 -48 52 degrees QTcB Int : 459 ms Normal sinus rhythm Left axis deviation Moderate voltage criteria for LVH, may be normal variant Inferior infarct , age undetermined Anterolateral infarct , age undetermined Abnormal ECG Confirmed by Kalpesh Egan ([id number]) on 02/14/2024 4:20:53 PM Referred By: Confirmed By: Kalpesh Egan
--- NOTE | 2024-02-14 16:25 | Electrocardiogram Report ---
Test Reason : Blood Pressure : */* mmHG Vent. Rate : 88 BPM Atrial Rate : 88 BPM P-R Int : 194 ms QRS Dur : 88 ms QT Int : 388 ms P-R-T Axes : 52 -48 34 degrees QTcB Int : 469 ms Normal sinus rhythm Left axis deviation Moderate voltage criteria for LVH, may be normal variant Inferior infarct (cited on or before 14-Feb-2024) Anterolateral infarct possibly recent Abnormal ECG When compared with ECG of 14-Feb-2024 08:53, (unconfirmed) Serial changes of evolving Anterior infarct Present Serial changes of evolving Anterolateral infarct Present Confirmed by Kalpesh Egan ([id number]) on 02/14/2024 4:24:52 PM Referred By: REFERRED SELF Confirmed By: Kalpesh Egan
[2024-02-14] MEDS: ACETAMINOPHEN 500 MG TAB PO PRN (16:31)
[2024-02-14] MEDS: PREGABALIN 75 MG CAP PO SCH (20:09)
[2024-02-14] MEDS: DULoxetine HCL 30 MG CAP PO SCH (20:10)
[2024-02-14] MEDS: ASPIRIN 81 MG ECTAB PO SCH (20:10)
[2024-02-14] MEDS: ATORVASTATIN 40 MG TAB PO SCH (20:10)
[2024-02-14] MEDS ORDERED: PANTOprazole 40 MG TAB PO SCH (21:00)
[2024-02-15 06:08] LABS: Hematocrit (blood only) 43.7 % (37.0-47.0); Hemoglobin 14.4 g/dl (12.0-16.0); Mean Corpuscular Hemoglobin 29.1 pg (25.0-34.0); Mean Corpuscular Volume 88.5 fL (80.0-100.0); Mean Platelet Volume 10.1 fL (9.4-12.4); Platelet Count 195 K/uL (130-400); RDW Coefficient of Variation 13.1 % (11.5-14.5); RDW Standard Deviation 42.3 fL (36.4-46.3); Red Blood Count 4.94 M/uL (4.20-5.40); White Blood Count 10.32 K/ul (4.8-10.8)
[2024-02-15 06:45] LABS: Total Protein 6.7 gm/dl (6.0-8.3)
[2024-02-15] MEDS: LEVOTHYROXINE SODIUM 112 MCG TABLET PO SCH (06:47)
[2024-02-15 06:52] LABS: Albumin Globulin Ratio 1.3 (0.9-2); Albumin Level 3.8 gm/dl (3.4-5.0); BUN Creatinine Ratio 44.2 (10-20); Bilirubin,Total 1.2 mg/dl (0.2-1.0); Calcium 9.2 mg/dl (8.6-10.3); Creatinine Clr Calc Pharmacy 67.7 ml/min; Globulin 2.9 gm/dl (2.5-4.0); Thyroid Stimulating Hormone 6.153 uIu/ml (0.300-4.500)
[2024-02-15] MEDS: LOSARTAN POTASSIUM 25 MG TAB PO SCH (08:32)
[2024-02-15] MEDS: METOPROLOL SUCC 25MG EXT REL TAB PO SCH (09:20)
--- NOTE | 2024-02-15 10:58 | Cardiology Progress Note ---
Date of Service February 15, 2024 Assessment & Plan (1) STEMI (ST elevation myocardial infarction): (2) Nausea & vomiting: (3) Hypertensive urgency: Plan Complex 78-year-old female presenting via ambulance with ongoing productive cough, nausea, and vomiting since Tuesday. Patient unable to take all medications for the past three days. EKG with anterolateral ST segment elevation. High-sensitivity troponin elevated, downtrending. Volume status appears compensated. Telemetry monitoring without arrhythmia thus far. Resting echocardiography pending. ? CA on Tuesday versus Takotsubo presentation from acute illness and withdrawal of chronic beta-corey therapy. Recommendations: * Awaiting resting echocardiography. * Agree with IV heparin. * Add IV metoprolol and topical nitrates while unable to take PO, eventually transitioning to oral metoprolol succinate, aspirin, high intensity statin therapy, and ARB. * Supplement potassium. * Check magnesium. * Maintain telemetry. 02/15/2024 Patient appears clinically improved this morning. Blood pressure and heart rate much improved. No further nausea or emesis. Anticoagulation discontinued yesterday due to concerns with possible hematemesis. Echocardiogram consistent with apical infarct versus apical ballooning cardiomyopathy. EKGs similar evolving infarct versus aneurysm Recommendations 1. Acute coronary syndrome, apical infarct with late presentation,evolving versus apical ballooning cardiomyopathy. Beta-corey resumed with usual oral dose will discontinue IV metoprolol. Continue losartan. Change topical nitrates to oral with Imdur 30 mg/day. Aspirin 81 mg p.o. daily Repeat echocardiogram in a.m., maintain telemetry. May ultimately require coronary angiography to further define depending on clinical course. Low threshold for reinstituting anticoagulation. Overall hemoglobin appears sta ble, GI complaints have improved Admission and Anticipated Discharge Date Admission Date: February 14, 2024 Subjective Patient seen and examined, chart, medications, telemetry reviewed. Patient improved this morning less nauseated. Blood pressure and heart rate much better controlled with current therapies. No dizziness or lightheadedness. No syncope or near syncope. No further emesis Review of Systems Review of Systems: All systems reviewed & are unremarkable except as noted in Subjective Physical Exam Physical Exam: General: A&Ox3. NAD. HENT: Normocephalic. Atraumatic. Eyes: PER. Conjunctiva pink, sclera clear. Neck: No carotid bruits. No overt JVD. Heart: RRR, 80 bpm. Soft systolic ejection murmur. No diastolic murmur. Lungs: Clear anteriorly. No wheeze. Abdomen: + Multiple laparoscopic scars. +BS. Mild epigastric tenderness Extremities: Lymphedema. No significant fluid. No clubbing. No cyanosis. Pulses: Posterior tibial 1/4 Limited neurological examination is without focal deficits. Constitutional: WD/WN, vitals as above Eyes: PERRL, conjunctivae normal, anicteric sclerae ENMT: external ear and nose normal, oropharynx normal Neck: trachea midline, no thyromegaly Respiratory: normal respiratory effort, lungs clear to auscultation Cardiovascular: Rate/Rhythm: regular rate and regular rhythm Heart Sounds: normal S1, normal S2 and + murmur (Grade 2/6 systolic) Vessels: no JVD Extremities: no edema Gastrointestinal (Abdomen): normal bowel sounds, soft, nontender, no hepatosplenomegaly Results & Data Vital Signs (Past 12 Hours) Vital Signs Temp Pulse Pulse Pulse Resp BP BP 02/15/24 09:12 63 02/15/24 07:45 58 L 02/15/24 07:45 02/15/24 07:42 36.2 C L 58 L 16 105/62 02/15/24 07:40 58 L 105/62 02/15/24 06:46 71 121/73 02/15/24 06:45 71 02/15/24 03:00 36.7 C 67 16 02/14/24 23:58 59 L 120/73 02/14/24 23:43 82 122/74 02/14/24 23:42 36.5 C 82 16 BP Pulse Ox O2 Del Method O2 Flow Rate 02/15/24 09:12 02/15/24 07:45 02/15/24 07:45 Nasal Cannula 2 02/15/24 07:42 98 Nasal Cannula 2 02/15/24 07:40 02/15/24 06:46 02/15/24 06:45 121/73 02/15/24 03:00 123/67 96 Nasal Cannula 2 02/14/24 23:58 02/14/24 23:43 02/14/24 23:42 122/74 95 Nasal Cannula 3 Laboratory Results Laboratory Results - last 24 hr 02/14/24 02/14/24 02/15/24 08:48 10:32 05:44 WBC 10.32 RBC 4.94 Hgb 14.4 Hct 43.7 MCV 88.5 MCH 29.1 MCHC 33.0 RDW Std Deviation 42.3 RDW Coeff of Norma 13.1 Plt Count 195 MPV 10.1 Sodium 139 Potassium 4.0 D Chloride 104 Carbon Dioxide 30 Anion Gap 5 BUN 34 H Creatinine 0.77 Est Cr Clr Drug Dosing 67.7 eGFR 78.42 BUN/Creatinine Ratio 44.2 H Glucose 111 H Calcium 9.2 Magnesium 2.1 Total Bilirubin 1.2 H AST 29 ALT 17 Alkaline Phosphatase 64 Troponin I High Sens 3826.3 H* Total Protein 6.7 D Albumin 3.8 Globulin 2.9 Albumin/Globulin Ratio 1.3 TSH 6.153 H ECG Additional Comments: EKG 02/15/2024 Sinus bradycardia at 57 bpm with Q waves and ST segment abnormalities consistent with evolving septal infarct/aneurysm (1) STEMI (ST elevation myocardial infarction) Involved coronary artery: unspecified coronary artery Qualified Code(s): I21.3 - ST elevation (STEMI) myocardial infarction of unspecified site
--- NOTE | 2024-02-15 12:19 | Electrocardiogram Report ---
Test Reason : Blood Pressure : */* mmHG Vent. Rate : 57 BPM Atrial Rate : 57 BPM P-R Int : 204 ms QRS Dur : 88 ms QT Int : 538 ms P-R-T Axes : 55 -37 -12 degrees QTcB Int : 523 ms Sinus bradycardia Left axis deviation Old Inferior infarct Recent Anterior infarct Prolonged QT Abnormal ECG When compared with ECG of 14-Feb-2024 09:42, HR has decreased by 31 bpm Otherwise no significant change Confirmed by Harshil Estrada ([id number]) on 02/15/2024 12:19:23 PM Referred By: REFERRED SELF Confirmed By: Harshil Estrada
[2024-02-15] MEDS: ISOSORBIDE MONO EXTENDED REL 30 MG TABCR PO SCH (12:21)
--- NOTE | 2024-02-15 15:49 | Hospitalist Progress Note ---
Date of Service February 15, 2024 Assessment & Plan (1) STEMI (ST elevation myocardial infarction): (2) Gastroesophageal reflux disease: (3) Obesity hypoventilation syndrome: (4) Hypothyroidism: Plan #STEMI Patient has remained chest pain-free, only complaint is mild indigestion; FMHx of GA in father, passed at 49 y/o - PCU and continuous cardiac monitoring - EKG: potential anterolateral infarct initially, repeat revealing same findings with inferior infarct and anterolateral infarct - Echocardiogram: Expanded apical wall motion and hyperdynamic basilar segments. LVEF: 40%. - Echo from 05/08/2021 revealing normal LV function and size, EF 65% - Troponin 4201.7, pending repeat q6hr x 3 - Potential ischemic heart disease vs Takutsubo's cardiomyopathy - Metoprolol succinate 25 daily, Losartan 25 mg daily, ASA 81mg continued outpatient - repeat echocardiogram pending #Leukocytosis Complaints of coughing, N/V; No abdominal pain, LUTS, or F/C; Abdominal exam unremarkable but h/o cholelithiasis - Hemodynamically stable - WBC initially elevated 16.50 decreased to 10.32 - UA negative - CXR w/o acute findings, no PNA identified - US RUQ: revealed cholelithiasis w/ mild bile duct dilation w/o evidence of cholecystitis - Resolved #Hypokalemia Asymptomatic currently - K 3.1 -> Replace IV since pt w/ N/V 40 mEq KCl IV - Magnesium replenished - Resolved #Obesity-Hypoventilation - Mainly nocturnal - likely 2/2 sleep apnea per PCP note (10/2023) - No longer utilizing O2 nightly 2/2 cost - May utilize at night while inpatient prn #Hypothyroidism - TSH (03/2023) 4.178, pending repeat - Levothyroxine- Continue #Neuropathy At baseline - Pregablin- continue #Anxiety/Depression Stable, per patient - Duloxetine, hydroxyzine prn #GERD/Heller's Esophagus Some indigestion w/ N/V - Pantoprazole - continue Dispo: Admit PCU Diet: NPO until after cath THEN heart healthy VTE Prophylaxis: Heparin Code: Full Admission and Anticipated Discharge Date Admission Date: February 14, 2024 Supervising Physician Co-Signing Physician Notes Attending attestation Pt seen and examined in concert with Dr. Perez. In agreement with the documented findings as noted in the resident documentation with any exceptions or additions as noted here. Resting in bed without chest pain complaint. On examination, S1/S2 nl RRR no MCG. CTAB. Abd NT/ND BS+ve Elevated troponin - STEMI vs. takotsubo - cardiology consult - pending repeat echocardiogram. Tolerating PO metoprolol, losartan, ASA well and will continue for now. Low threshold for resume anitocoagulation. Else see resident documentation as noted. Subjective Figueroa Schneider is a 78 y/o F with a past medical history of GERD, obesity hypoventilation syndrome, anxiety, depression, neuropathy, PE, and TIA presented to [facility] ED due to persistent nausea, vomiting and a productive cough for 3 days. Patient was found to have elevated high sensitivity troponin 4200 and EKG findings suspicious for anterolateral STEMI, and also WBC count of 16.50. Today the patient is feeling well without nausea, vomiting, abdominal pain, chest pain, palpitations, tightness, or SOB. Reports no issues. Is amenable to receiving catheterization if necessary. Physical Exam Physical Exam: General: patient resting comfortably, NAD, non-toxic in appearance, answers questions appropriately. Skin: warm, dry, intact HEENT: NC/AT, anicteric sclera, conjunctiva without injection, moist mucus membranes. Heart: +S1/S2, regular, no m/r/g Lungs: equal air entry bilaterally, no rales/rhonchi/wheezes Abd: +BS, soft, NT/ND Ext: warm, no clubbing/cyanosis or edema Neuro: nonfocal, speech intact, no facial droop, moving all extremities. Results & Data Results & Data Vital Signs (Past 12 Hours) Vital Signs Temp Pulse Pulse Pulse Resp BP BP 02/15/24 15:40 59 L 02/15/24 15:36 36.6 C 62 19 100/59 L 02/15/24 11:31 36.4 C L 65 19 111/62 02/15/24 09:12 63 02/15/24 07:45 58 L 02/15/24 07:45 02/15/24 07:42 36.2 C L 58 L 16 105/62 02/15/24 07:40 58 L 105/62 02/15/24 06:46 71 121/73 02/15/24 06:45 71 BP Pulse Ox O2 Del Method O2 Flow Rate 02/15/24 15:40 02/15/24 15:36 90 Nasal Cannula 02/15/24 11:31 97 Nasal Cannula 2 02/15/24 09:12 02/15/24 07:45 02/15/24 07:45 Nasal Cannula 2 02/15/24 07:42 98 Nasal Cannula 2 02/15/24 07:40 02/15/24 06:46 02/15/24 06:45 121/73 Resident Activity Tracking Resident Involvement: Resident Care Provided Care Provided: Adult Hospital Medicine (1) STEMI (ST elevation myocardial infarction) Involved coronary artery: unspecified coronary artery Qualified Code(s): I21.3 - ST elevation (STEMI) myocardial infarction of unspecified site
[2024-02-16 05:29] LABS: Hematocrit (blood only) 40.2 % (37.0-47.0); Hemoglobin 13.5 g/dl (12.0-16.0); Mean Corpuscular Hemoglobin 30.1 pg (25.0-34.0); Mean Corpuscular Hgb Conc 33.6 g/dL (32.0-36.0); Mean Corpuscular Volume 89.5 fL (80.0-100.0); Platelet Count 183 K/uL (130-400); RDW Coefficient of Variation 12.9 % (11.5-14.5); RDW Standard Deviation 41.9 fL (36.4-46.3); Red Blood Count 4.49 M/uL (4.20-5.40); White Blood Count 8.42 K/ul (4.8-10.8)
[2024-02-16 06:27] LABS: Albumin Globulin Ratio 1.3 (0.9-2); Albumin Level 3.5 gm/dl (3.4-5.0); Calcium 9.2 mg/dl (8.6-10.3); Creatinine Clr Calc Pharmacy 73.4 ml/min; Globulin 2.8 gm/dl (2.5-4.0); Potassium 3.9 mmol/L (3.5-5.1); Total Protein 6.3 gm/dl (6.0-8.3)
[2024-02-16 06:37] LABS: BUN Creatinine Ratio 43.7 (10-20)
--- NOTE | 2024-02-16 09:19 | Cardiology Progress Note ---
Date of Service February 16, 2024 Assessment & Plan (1) STEMI (ST elevation myocardial infarction): (2) Nausea & vomiting: (3) Hypertensive urgency: Plan Complex 78-year-old female presenting via ambulance with a productive cough, nausea, and vomiting since Tuesday. Patient unable to take all medications three days prior to presentation. EKG with anterolateral ST segment elevation. High- sensitivity troponin elevated, downtrending. Initial resting echocardiography on February 14, 2024 with an expanded apical wall motion abnormality with hyperdynamic basilar segments possibly reflecting ischemic heart disease versus stress mediated cardiomyopathy with a apical ballooning, EF 40%. Patient initially prescribed IV heparin, discontinued in late afternoon of February 14, 2024 due to possible hematemesis. Follow-up resting echocardiography this morning revealed less expanded apical segments with mild improved contractility compared to prior though still impaired, LVEF 40 to 45%. Patient clinically improved. Heart rate and blood pressure controlled. Volume status is compensated. Telemetry benign. Options of management discussed, medical management with follow-up resting echocardiography and pharmacological stress evaluation versus referral for cardiac catheterization with patient preferring referral for diagnostic cardiac catheterization. Continue appropriate medical management with evidence-based beta-corey, ARB, long-acting oral nitrates, aspirin, and moderate intensity statin therapy. Admission and Anticipated Discharge Date Admission Date: February 14, 2024 Supervising Physician Co-Signing Physician Notes Patient seen and examined, chart, medications, telemetry reviewed. Full assessment and plan by advanced provider as above. Patient hemodynamically stable from cardiac standpoint no further chest pain or nausea or vomiting. Apical wall motion amenities remain present on echocardiogram. Discussed options of management will proceed with diagnostic coronary angiography. Patient has been n.p.o. after midnight will proceed with for study later today Subjective Patient seen and examined. Chart, medications, telemetry reviewed. Feeling okay. No nausea or vomiting. Lying flat in bed comfortable today. Able to take medications in the past 24 hours. No fevers or chills. No bleeding difficulties.. Telemetry: Sinus in the 50's and 60's. Echocardiogram with mild improvement in contractility of the apical segments but remains expanded. EF 40-45% Review of Systems Review of Systems: Complete Review of Systems is as stated above, negative, or noncontributory. Physical Exam Physical Exam: General: A&Ox3. NAD. HENT: Normocephalic. Atraumatic. Eyes: PER. Conjunctiva pink, sclera clear. Neck: No carotid bruits. No JVD. Heart: RRR, 66 bpm. Soft systolic ejection murmur. No diastolic murmur. Lungs: Clear anteriorly. No wheeze. Abdomen: + Multiple laparoscopic scars. +BS. Nontender. No organomegaly. Extremities: Lymphedema. No significant fluid. No clubbing. No cyanosis. Pulses: Posterior tibial 1/4 Limited neurological examination is without focal deficits. Results & Data Vital Signs (Past 12 Hours) Vital Signs Temp Pulse Pulse Resp BP Pulse Ox O2 Del Method 02/16/24 07:43 36.6 C 57 L 16 115/66 95 Room Air 02/16/24 07:29 55 L 02/16/24 04:30 36.6 C 67 18 111/67 95 Nasal Cannula 02/15/24 22:42 36.4 C L 64 16 93/56 L 95 Nasal Cannula 02/15/24 21:59 66 O2 Flow Rate 02/16/24 07:43 02/16/24 07:29 02/16/24 04:30 2 02/15/24 22:42 2 02/15/24 21:59 Laboratory Results Cardiac Enzymes 02/16/24 Range/Units 04:44 AST 20 (13-39) U/L CBC 02/16/24 Range/Units 04:44 WBC 8.42 (4.8-10.8) K/ul RBC 4.49 (4.20-5.40) M/uL Hgb 13.5 (12.0-16.0) g/dl Hct 40.2 (37.0-47.0) % Plt Count 183 (130-400) K/uL Comprehensive Metabolic Panel 02/16/24 Range/Units 04:44 Sodium 139 (136-145) mmol/L Potassium 3.9 (3.5-5.1) mmol/L Chloride 103 (98-107) mmol/L Carbon Dioxide 29 (21-32) mmol/L BUN 31 H (6-23) mg/dl Creatinine 0.71 (0.6-1.2) mg/dl Glucose 107 H (70-99(Fasting)) mg/dl Calcium 9.2 (8.6-10.3) mg/dl AST 20 (13-39) U/L ALT 16 (7-52) U/L Alkaline Phosphatase 68 (34-104) U/L Total Protein 6.3 (6.0-8.3) gm/dl Albumin 3.5 (3.4-5.0) gm/dl Intake and Output 02/15/24 02/16/24 02/16/24 22:59 06:59 14:59 Intake Total 100 / 500 200 / 500 Balance 100 / 500 200 / 500 Intake: IV 100 / 500 200 / 500 PANTOprazole 40 mg In Dextrose 100 / 500 200 / 500 5% Mini-B 100 ml @ 8 MG/HR 20 mls/hr IV Q5H [facility] Rx#:[id number] Other: Other Intake Source NPO npo # Unmeasured Voids 2 2 Weight 106.7 kg Weight Measurement Method Built in [facility] (1) STEMI (ST elevation myocardial infarction) Involved coronary artery: unspecified coronary artery Qualified Code(s): I21.3 - ST elevation (STEMI) myocardial infarction of unspecified site
--- NOTE | 2024-02-16 11:04 | Pre Anesthesia Assessment ---
Date of Service February 16, 2024 Pre Sedation Assessment Vital Signs Temp Pulse Pulse Resp BP BP Pulse Ox 02/16/24 10:53 57 L 18 129/68 92 02/16/24 07:43 36.6 C 57 L 16 115/66 95 02/16/24 07:29 55 L 02/16/24 04:30 36.6 C 67 18 111/67 95 02/15/24 22:42 36.4 C L 64 16 93/56 L 95 02/15/24 21:59 66 02/15/24 20:40 02/15/24 19:44 36.5 C 64 18 109/63 97 02/15/24 15:40 59 L 02/15/24 15:36 36.6 C 62 19 100/59 L 90 02/15/24 11:31 36.4 C L 65 19 111/62 97 O2 Del Method O2 Flow Rate 02/16/24 10:53 Room Air 02/16/24 07:43 Room Air 02/16/24 07:29 02/16/24 04:30 Nasal Cannula 2 02/15/24 22:42 Nasal Cannula 2 02/15/24 21:59 02/15/24 20:40 Nasal Cannula 2 02/15/24 19:44 Room Air 02/15/24 15:40 02/15/24 15:36 Nasal Cannula 02/15/24 11:31 Nasal Cannula 2 Cardiovascular RRR, no murmur, no edema Respiratory normal respiratory effort, lungs clear to auscultation Pre-Sedation Airway Assessment Smoking Status: Never smoker Short, Thick Neck: No Thyromental Distance: > or= 3.5 Finger Breadths Oral Cavity: + Dental Abnormalities Mallampati Class: IV ASA: ASA3 NPO Status Date of Last Intake of Solid Food: 02/15/24 Notes The planned sedation has been discussed with the patient. Informed Consent was obtained. I have identified the patient, determined the appropriateness of sedation and have assessed the patient immediately prior to the procedure. All medicine(s) and interventions are by my order.
[2024-02-16] MEDS: niCARdipine 2,000 MCG/20 ML SYR ONE (11:16)
[2024-02-16] MEDS: NITROGLYCERIN/D5W 100MCG/ML 20ML SYR ONE (11:16)
[2024-02-16] MEDS: IODIXANOL (VISIPAQUE) 320 MG/ML 100ML IV ONE (11:16)
[2024-02-16] MEDS: HEPARIN (PORCINE) 1000 UNIT/ML 10 ML (CATH LAB USE ONLY) ONE (11:29)
[2024-02-16] MEDS: MIDAZOLAM HCL 1 MG/ML 2ML VIAL ONE (11:29)
[2024-02-16] MEDS: fentaNYL citrate PF 100 MCG/2 ML VIAL ONE (11:29)
[2024-02-16] MEDS: OPTIRAY 350 ONE (11:30)
--- NOTE | 2024-02-16 13:01 | Communication Note ---
Date of Service: February 16, 2024 Patient underwent coronary angiography uneventfully today. 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
[2024-02-16 15:28] VITALS: RESP 18
--- NOTE | 2024-02-16 17:25 | Hospitalist Progress Note ---
Date of Service February 16, 2024 Assessment & Plan (1) STEMI (ST elevation myocardial infarction): (2) Gastroesophageal reflux disease: (3) Obesity hypoventilation syndrome: (4) Hypothyroidism: Plan #STEMI Patient has remained chest pain-free, only complaint is mild indigestion; FMHx of [place] in father, passed at 48 y/o - PCU and continuous cardiac monitoring - EKG: potential anterolateral infarct initially, repeat revealing same findings with inferior infarct and anterolateral infarct - Echocardiogram: Expanded apical wall motion and hyperdynamic basilar segments. LVEF: 40%. - Echo from 05/08/2021 revealing normal LV function and size, EF 65% - Troponin 4201.7, pending repeat q6hr x 3 - Potential ischemic heart disease vs Takutsubo's cardiomyopathy - Metoprolol succinate 25 daily, Losartan 25 mg daily, ASA 81mg continued outpatient - repeat echocardiogram: improved cardiac apical expansion, LVEF: 40% - Catheterization revealed no coronary artery blockages, supporting stress mediated cardiomyopathy and withdrawal of beta-corey therapy rather than CAD #Leukocytosis Complaints of coughing, N/V; No abdominal pain, LUTS, or F/C; Abdominal exam unremarkable but h/o cholelithiasis - Hemodynamically stable - WBC initially elevated 16.50 decreased to 10.32 - UA negative - CXR w/o acute findings, no PNA identified - US RUQ: revealed cholelithiasis w/ mild bile duct dilation w/o evidence of cholecystitis - Resolved #Hypokalemia Asymptomatic currently - K 3.1 -> Replace IV since pt w/ N/V 40 mEq KCl IV - Magnesium replenished - Resolved #Obesity-Hypoventilation - Mainly nocturnal - likely 2/2 sleep apnea per PCP note (10/2023) - No longer utilizing O2 nightly 2/2 cost - May utilize at night while inpatient prn #Hypothyroidism - TSH (03/2023) 4.178, pending repeat - Levothyroxine- Continue #Neuropathy At baseline - Pregablin- continue #Anxiety/Depression Stable, per patient - Duloxetine, hydroxyzine prn #GERD/Heller's Esophagus Some indigestion w/ N/V - Pantoprazole - continue Dispo: Admit PCU Diet: NPO until after cath THEN heart healthy VTE Prophylaxis: Heparin Code: Full Admission and Anticipated Discharge Date Admission Date: February 14, 2024 Supervising Physician Co-Signing Physician Notes Attending attestation Pt seen and examined in concert with Dr. Perez. In agreement with the documented findings as noted in the resident documentation with any exceptions or additions as noted here. Resting comfortably in bed without acute complaint nor recurrence of presenting symptoms. On examination, S1/S2 nl RRR no MCG. CTAB. Abd NT/ND BS+ve Elevated troponin - STEMI vs. takotsubo - cardiology consult - repeat echocardiogram with some improvement in function. Cardiac cath today. Continue PO metoprolol, losartan, ASA. Low threshold for resume anticoagulation. Else see resident documentation as noted. Subjective Figueroa Schneider is a 78 y/o F with a past medical history of GERD, obesity hypoventilation syndrome, anxiety, depression, neuropathy, PE, and TIA presented to [facility] ED due to persistent nausea, vomiting and a productive cough for 3 days. Patient was found to have elevated high sensitivity troponin 4200 and EKG findings suspicious for anterolateral STEMI, and also WBC count of 16.50. Today patient is still feeling well without any nausea, vomiting, abdominal pain, chest pain, palpitations, chest tightness, or SOB. Patient underwent cath today for potential coronary artery blockage that revealed normal coronary arteries without any significant blockage. Physical Exam Physical Exam: General: patient resting comfortably, NAD, non-toxic in appearance, answers questions appropriately. Skin: warm, dry, intact HEENT: NC/AT, anicteric sclera, conjunctiva without injection, moist mucus membranes. Heart: +S1/S2, regular, no m/r/g Lungs: equal air entry bilaterally, no rales/rhonchi/wheezes Abd: +BS, soft, NT/ND Ext: warm, no clubbing/cyanosis or edema Neuro: nonfocal, speech intact, no facial droop, moving all extremities. Results & Data Results & Data Vital Signs (Past 12 Hours) Vital Signs Temp Pulse Pulse Resp BP BP Pulse Ox 02/16/24 15:27 36.5 C 58 L 18 107/65 92 02/16/24 15:16 59 L 02/16/24 13:45 61 20 108/66 93 02/16/24 13:08 36.6 C 62 18 147/82 H 93 02/16/24 12:45 36.4 C L 56 L 18 105/65 90 02/16/24 12:17 36.4 C L 56 L 16 114/65 90 02/16/24 11:55 55 L 14 109/57 L 92 02/16/24 11:38 64 14 129/68 94 02/16/24 10:53 57 L 18 129/68 92 02/16/24 08:00 02/16/24 07:43 36.6 C 57 L 16 115/66 95 02/16/24 07:29 55 L O2 Del Method 02/16/24 15:27 Room Air 02/16/24 15:16 02/16/24 13:45 Room Air 02/16/24 13:08 Room Air 02/16/24 12:45 Room Air 02/16/24 12:17 Room Air 02/16/24 11:55 Room Air 02/16/24 11:38 Room Air 02/16/24 10:53 Room Air 02/16/24 08:00 Room Air 02/16/24 07:43 Room Air 02/16/24 07:29 Resident Activity Tracking Resident Involvement: Resident Care Provided Care Provided: Adult Hospital Medicine (1) STEMI (ST elevation myocardial infarction) Involved coronary artery: unspecified coronary artery Qualified Code(s): I2 1.3 - ST elevation (STEMI) myocardial infarction of unspecified site
--- NOTE | 2024-02-17 09:40 | Cardiology Progress Note ---
Date of Service February 17, 2024 Assessment & Plan (1) STEMI (ST elevation myocardial infarction): (2) Nausea & vomiting: (3) Hypertensive urgency: Plan Complex 78-year-old female presenting via ambulance with a productive cough, nausea, and vomiting since Tuesday. Patient unable to take all medications three days prior to presentation. EKG with anterolateral ST segment elevation. High- sensitivity troponin elevated, downtrending. Initial resting echocardiography on February 14, 2024 with an expanded apical wall motion abnormality with hyperdynamic basilar segments possibly reflecting ischemic heart disease versus stress mediated cardiomyopathy with a apical ballooning, EF 40%. Patient initially prescribed IV heparin, discontinued in late afternoon of February 14, 2024 due to possible hematemesis. Follow-up resting echocardiography on 02/15 with less expanded apical segments with mildly improved contractility compared to prior though still impaired, LVEF 40 to 45%. Diagnostic cardiac catheterization on 02/16/2024 with normal coronary arteries, presentation c onsistent with apical ballooning cardiomyopathy secondary to acute stressors and withdrawal of chronic beta-corey therapy. Patient clinically improved. Heart rate and blood pressure controlled. Volume status is compensated. Telemetry benign. Continue medical management with metoprolol succinate, losartan, aspirin, and moderate intensity statin therapy. Follow-up resting echocardiogram scheduled for March 14, 2024 at 11:30 AM at [facility] with outpatient follow-up to be arranged shortly thereafter. Please contact with any cardiac concerns. Admission and Anticipated Discharge Date Admission Date: February 14, 2024 Supervising Physician Co-Signing Physician Notes Patient seen and personally examined. Care and management discussed in detail with advanced provider. Recommendations personally endorsed. 78-year-old female presenting with severe nausea cough and vomiting inability to take oral medications including beta-corey. Initial EKGs concerning with elevated troponins for myocardial infarction versus via echocardiogram apical ballooning cardiomyopathy. Subsequent cardiac catheterization with normal coronaries. Impression: Acute coronary syndrome consistent with apical ballooning cardiomyopathy with normal coronary anatomy Recommendations as above Subjective Patient seen and examined. Chart, medications, telemetry reviewed. Status post February 16, 2024 diagnostic cardiac catheterization, study demonstrating normal coronary arteries Feeling well. No complaints or concerns. No chest pain, shortness of breath, increased cough, orthopnea, PND, increased lower extremity peripheral edema, dizziness, or near syncope Telemetry: Sinus rhythm in the 70s. Review of Systems Review of Systems: Complete Review of Systems is as stated above, negative, or noncontributory. Physical Exam Physical Exam: General: A&Ox3. NAD. HENT: Normocephalic. Atraumatic. Eyes: PER. Conjunctiva pink, sclera clear. Neck: No carotid bruits. No JVD. Heart: RRR, 70 bpm. Soft systolic ejection murmur. No diastolic murmur. Lungs: Clear anteriorly. No wheeze. Abdomen: + Multiple laparoscopic scars. +BS. Nontender. No organomegaly. Extremities: Lymphedema. Minimal edema. No clubbing. No cyanosis. Pulses: Posterior tibial 1/4 Limited neurological examination is without focal deficits. Results & Data Vital Signs (Past 12 Hours) Vital Signs Temp Pulse Pulse Resp BP Pulse Ox O2 Del Method 02/17/24 07:52 36.4 C L 73 18 132/71 97 Nasal Cannula 02/17/24 07:26 67 02/17/24 03:01 36.8 C 64 18 132/74 96 Room Air 02/17/24 00:51 70 115/59 L 92 Room Air 02/17/24 00:00 68 02/16/24 22:42 36.8 C 70 18 128/68 92 Room Air O2 Flow Rate 02/17/24 07:52 2 02/17/24 07:26 02/17/24 03:01 02/17/24 00:51 02/17/24 00:00 02/16/24 22:42 Laboratory Results Intake and Output 02/16/24 02/17/24 02/17/24 22:59 06:59 14:59 Intake Total 300 / 960 320 / 960 Balance 300 / 960 320 / 960 Intake: IV 100 / 400 200 / 400 PANTOprazole 40 mg In Dextrose 100 / 400 200 / 400 5% Mini-B 100 ml @ 8 MG/HR 20 mls/hr IV Q5H [facility] Rx#:[id number] Oral 200 / 560 120 / 560 Other: Weight 106.8 kg (1) STEMI (ST elevation myocardial infarction) Involved coronary artery: unspecified coronary artery Qualified Code(s): I21.3 - ST elevation (STEMI) myocardial infarction of unspecified site
[2024-02-17 12:06] VITALS: TEMP 97.7; O2SAT 92
[2024-02-17 13:04] VITALS: BP 121/73; PULSE 63
--- NOTE | 2024-02-17 13:15 | Discharge Summary ---
Date of Service February 17, 2024 Admission HPI Per Admitting Provider 78-year-old female presenting to ED for nausea and productive cough x 3 days. ED course: CBC WBC 16.50, RBC 5.72, H&H 17.2/49.4, neutrophils 13.49, monocytes 1.5; CMP potassium 3.1, anion gap 14, BUN 34, BUN/creatinine ratio 34.7, glucose 169, calcium 10.6, total bilirubin 1.5, AST 42, protein 8.6; lipase 16; troponin 4201.7, pending repeat; BioFire pending; CXR no acute abnormalities no particular radiographic evidence of pneumonia; EKG NSR, LAD, moderate voltage criteria for LVH, rate around 97 bpm,? Inferior infarct,? Anterolateral infarct.; Provided with heparin, aspirin, benaonatate, ondansetron, and ticagrelor in ED. Patient is a 78-year-old female PMHx obesity hypoventilation syndrome, polyneuropathy, GERD, prior PE (left lingual pulmonary artery), hypothyroidism, dyslipidemia, HTN, anxiety and depression, Heller's esophagus who presents for 3 days of nausea and a productive cough. 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 Patient states that she did take Ozempic on Tuesday and notes that occasionally this medication will not make her feel the best. However, this continued into the day of arrival without much change other than it which is becoming consistent and bothersome to her. Patient states that the vomit was almost green in color. Patient states she is not having any change in her bowel movement to include constipation or diarrhea and is not her not having any abdominal pain either. Patient states that she may have a little bit of indigestion with occasional burping but no other symptoms related to the GI tract. Patient states that she has not had any other symptoms specifically denying chest pain, shortness of breath, palpitations, or episodes of diaphoresis. Patient states that she has had a TIA in the past, but no cardiac conditions. Denies vision changes, fever/chills, numbness/tingling, LUTS lightheadedness, or LOC. Patient did not take a.m. medications. Please see Dr. Rainey's attestation for adjustments/additions to treatment plan. Admission Exam Per Admitting Provider General: No acute distress, resting comfortably in bed Skin: Warm and dry, without rashes or lesions;no open areas of skin or wounds Head: Normocephalic, atraumatic Eyes: PERRL, conjunctivae clear, sclera non-icteric; EOM intact ENT: External ear and ear canal without swelling; nose atraumatic; good dentition, tongue normal appearance, pharynx normal without tonsillar swelling or exudate Neck: Supple, no LAD; no JVD Cardio: RRR, no M/G/R, S1 and S2 normal Resp: No respiratory distress, Lungs CTA in all lobes bilaterally, no wheezes, rales, or rhonchi; coughing during exam Abdomen: Soft, symmetric, nontender; No visible lesions or scars; no distention; No masses or hepatosplenomegaly; Bowel sounds normoactive MSK: No deformities, full ROM throughout; pulses palpable and equal; trace pitting edema BLE, level of mid calf. Neuro: Awake, alert; Muscle strength 5/5 bilaterally in UE/LE; Sensation intact bilaterally; CN grossly intact Psych: Appropriate mood and affect; good judgement and insight. Principal Diagnosis Stress induced cardiomyopathy Discharge Exam General: patient resting comfortably, NAD, non-toxic in appearance, answers questions appropriately. Skin: warm, dry, intact HEENT: NC/AT, anicteric sclera, conjunctiva without injection, moist mucus membranes. Heart: +S1/S2, regular, no m/r/g Lungs: equal air entry bilaterally, no rales/rhonchi/wheezes Abd: +BS, soft, NT/ND Ext: warm, no clubbing/cyanosis or edema Neuro: nonfocal, speech intact, no facial droop, moving all extremities. Discharge Data Allergies Allergy/AdvReac Type Severity Reaction Status Date / Time morphine Allergy Intermediate DELIRIUM Verified 02/16/24 10:56 SHEREE Inhibitors AdvReac Intermediate SEVERE Verified 02/16/24 10:56 COUGH NSAIDS (Non-Steroidal AdvReac Intermediate GI BLEED Verified 02/16/24 10:56 Anti-Inflamma Consultations 02/14/24 09:58 Consult Cardiology Stat ED Decision to Admit Stat Procedures Performed Operation Date: 02/16/24 10:30 Actual Procedures s Cineradiography w/Routine Exam - Tab Gamez MD, PhD p Cath, Coronaries ONLY (no LV) - Tab Gamez MD, PhD Ordered Studies 02/14/24 10:01 CL Cath Imgs for PACS use only Stat 02/14/24 11:10 US RUQ [US liver] Stat 02/16/24 10:23 CL Cath Imgs for PACS use only Stat Hospital Course (1) STEMI (ST elevation myocardial infarction): (2) Gastroesophageal reflux disease: (3) Obesity hypoventilation syndrome: (4) Hypothyroidism: Plan #STEMI Patient has remained chest pain-free, only complaint is mild indigestion; FMHx of MD in father, passed at 48 y/o - PCU and continuous cardiac monitoring - EKG: potential anterolateral infarct initially, repeat revealing same findings with inferior infarct and anterolateral infarct - Echocardiogram: Expanded apical wall motion and hyperdynamic basilar segments. LVEF: 40%. - Echo from 05/08/2021 revealing normal LV function and size, EF 65% - Troponin 4201.7, pending repeat q6hr x 3 - Potential ischemic heart disease vs Takutsubo's cardiomyopathy - repeat echocardiogram: improved cardiac apical expansion, LVEF: 40% - Catheterization revealed no coronary artery blockages, supporting stress mediated cardiomyopathy and withdrawal of beta-corey therapy rather than CAD - Metoprolol succinate 25 daily, Losartan 25 mg daily, ASA 81mg and isosorbide mononitrate 30 mg QAM daily after d/c #Leukocytosis Complaints of coughing, N/V; No abdominal pain, LUTS, or F/C; Abdominal exam unremarkable but h/o cholelithiasis - Hemodynamically stable - WBC initially elevated 16.50 decreased to 10.32 - UA negative - CXR w/o acute findings, no PNA identified - US RUQ: revealed cholelithiasis w/ mild bile duct dilation w/o evidence of cholecystitis - Resolved #Hypokalemia Asymptomatic currently - K 3.1 -> Replace IV since pt w/ N/V 40 mEq KCl IV - Magnesium replenished - Resolved #Obesity-Hypoventilation - Mainly nocturnal - likely 2/2 sleep apnea per PCP note (10/2023) - No longer utilizing O2 nightly 2/2 cost - May utilize at night while inpatient prn - Chronic, O2 saturation stable on RA, no dyspnea #Hypothyroidism - TSH (03/2023) 4.178, pending repeat - Levothyroxine- Continue #Neuropathy At baseline - Pregablin- continue #Anxiety/Depression Stable, per patient - Duloxetine, hydroxyzine prn #GERD/Heller's Esophagus Some indigestion w/ N/V - Pantoprazole - continue Dispo: Admit PCU Diet: NPO until after cath THEN heart healthy VTE Prophylaxis: Heparin Code: Full Total Time Total Time Spent Total Time Spent (In Minutes): I spent 33 minutes seeing the patient, 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 Discharge Plan Discharge Items Patient Disposition: Home - Self-Care Reason For Visit: COUGH, N/V Discharge Diagnosis: Stress mediated cardiomyopathy s/p withdrawal of b-corey therapy Activity: Per Instructions section Non-emergency contact: Primary Care Provider Call non-emergency contact if: your symptoms worsen and your pain is not controlled Follow-up/Referrals: Adam Lunsford CRNP [Primary Care Provider] - 02/29/24 10:20 am ([facility] follow up is scheduled for February 29, 2024 at 10:20am.) Diet: Heart Healthy Addtl Attending Provider Instructions: You were admitted to [facility] for nausea, vomiting and productive cough for 3 days and additionally high sensitivity troponin level of 4201, and EKG concerning for a STEMI. At [facility] an echocardiogram was obtained showing cardiac wall abnormalities and a lower than usual amount of blood being pumped from the heart. A repeat echocardiogram was taken showing improvement of the cardiac wall abnormalities with a similar amount of blood being pumped by the heart. Although throughout your hospital admission you never had any chest pain, palpitations, or chest heaviness/tightness it was deemed necessary by the hospitalist and cardiology teams to undergo coronary catheterization to assess the function and viability of the coronary arteries. This catheterization test revealed no significant blockages within the coronary arteries and no evidence of a heart attack. In the hospital your condition quickly improved and your nausea and vomiting improved after your first day of admission. Going forward it is important to take your medications on a regular basis as prescribed, as it is likely that this stress induced cardiomyopathy arose from withdrawal of your beta-corey therapy in addition to your recent viral gastroenteritis causing your nausea, vomiting, and productive cough. A discharge summary will be sent to your primary care physician to ensure continuity of care. Please bring this discharge summary with you to your next office appointment so that your provider can review it at that time. Follow-up appointments: Make a follow-up appointment with your PCP within the next week. It is very im portant that you follow up with them shortly after discharge from the hospital. Medications: Your medication list has been reviewed and reconciled upon discharge to ensure accuracy and continuity of care. An updated list of all your medications is included with your hospital discharge paperwork. Please review this list closely, and make note of any changes. A new medication Isosorbide Mononitrate has been sent to your pharmacy. Please take Isosorbide Mononitrate 30mg once daily in the mornings. It is also important that you consistently take your aspirin, losartan, metoprolol succinate, and atorvastatin as prescribed on a regular basis. If you have any issues filling these prescriptions, please call [phone] and ask to leave a message for Dr. Javier Perez. Take your medications as instructed; do not skip a dose of your medicines. Make sure all of your doctors know every medicine you are taking (including qvkw-pvy-jrkmdun medicines, vitamins, and supplements). Call your primary care provider before taking any new medicines (including dwma-ggr-jhtcbcb medicines, vitamins, and supplements), because some of these may interact with your current medications, or may make your symptoms worse. Tell your primary care provider if you cannot afford your medications. CONTACT YOUR PRIMARY CARE PROVIDER if you experience any of the following: Difficulty following your treatment plan, or difficulty taking medications CALL 911 OR GO TO THE EMERGENCY DEPARTMENT if you experience any of the following: Sudden, severe abdominal pain or nausea/vomiting Severe chest pain, or chest pain that radiates (moves) to your jaw or arm Sudden, severe shortness of breath or difficulty breathing Thank you for allowing us to participate in your care. Pending Studies at Discharge: No Stand-Alone Forms: My [facility], Smoking Cessation Medications and DC Order Prescriptions: New isosorbide mononitrate 30 mg tablet extended release 24 hr 30 mg PO QAM Qty: 30 0RF Rx Instructions: Please take isosorbide mononitrate (Imdur) 30mg extended release once per day in the mornings. Continued duloxetine 30 mg capsule,delayed release(DR/EC) 30 mg PO BID 100 Days Qty: 200 3RF losartan 25 mg tablet 25 mg PO QAM Qty: 100 3RF pregabalin 75 mg capsule 75 mg PO BID Qty: 200 1RF diclofenac sodium [Voltaren Arthritis Pain] 1 % gel 2 g topical QID PRN (Reason: Pain) Qty: 300 0RF Rx Instructions: apply to single elbow, wrist or hand; for hand includes palm/fingers/back of hand melatonin 3 mg tablet 3 mg PO HS Qty: 90 0RF (DME) Oxygen Home Liters Per Minute See Rx Instructions .Route Qty: 1 0RF Rx Instructions: D/C Oxygen. atorvastatin 40 mg tablet 40 mg PO HS Qty: 100 3RF hydroxyzine HCl 25 mg tablet 25 mg PO BID PRN (Reason: Anxiety ) Qty: 180 3RF levothyroxine 112 mcg tablet 112 mcg PO QAM Qty: 100 5RF pantoprazole [Protonix] 40 mg tablet,delayed release (DR/EC) 40 mg PO BID Qty: 180 3RF aspirin 81 mg tablet,delayed release (DR/EC) 81 mg PO QPM Rx Instructions: 83 mg per pt cholecalciferol (vitamin D3) 125 mcg (5,000 unit) Tablet 5,000 unit PO QAM Qty: 30 0RF Rx Instructions: otc unable to verify acetaminophen [Tylenol Extra Strength] 500 mg tablet 1,000 mg PO TID PRN (Reason: Pain) metoprolol succinate 25 mg tablet extended release 24 hr 25 mg PO DAILY Discharge Orders: Discharge Order (Routine); Ordered 02/17/24 Ordered By: Javier Perez Admission Data Admit Date/Time: 02/14/24 10:02 Attending Provider: Hi Dickens Admit Provider: Capo Rainey Primary Care Provider: Adam Lunsford Other Providers: Kalpesh Egan; Capo Rainey Other Interventions: Discharge Summary Assessment (RN) Last Done: 02/17/24 13:03 Supervising Physician Co-Signing Physician Notes ATTESTATION I also saw the patient and confirmed tony portions of the history and exam. I also discussed the case and care plan with cardiology. I agree with the impression and plan in the resident documentation, and as summarized below. Patient without complaints this morning. She has good understanding of the test results and plan of care as she has just spoken with cardiology. Will resume home medications. She will have a follow up echocardiogram scheduled as an outpatient in about a month (March 14, 2024 at 11:30 AM at [facility]) with outpatient cardiology follow up thereafter. Additional per resident documentation Resident Activity Tracking Resident Involvement: Resident Care Provided Care Provided: Adult [facility] Medicine
--- NOTE | 2024-02-17 14:35 | Cardiac Catheterization ---
[facility] Data: Photographic Supervisor Cardiac Status Clinical evaluation leading to the procedure CAD Presenation: Sx unlikely to be ischemic Anginal Classification: No Symptoms Heart Failure: NYHA Class: CCS III Cardiogenic Shock within 24 Hours: No Cardiac Arrest within 24 Hours: No Imaging Studies Past 6 Months: Yes Stress Studies Past 6 Months: No Coronary Anatomy Dominant: Right Left Main (% Stenosis): Normal LAD (% Stenosis): Proximal (30%) D1 (% Stenosis): Normal Circumflex (% Stenosis): Normal OM1 (% Stenosis): Normal RCA (% Stenosis): Normal R PDA (% Stenosis): Normal R PL1 (% Stenosis): Normal Ramus (% Stenosis): Normal Diagnostic Physicians Name: Tab Gamez MD, PhD Closure Device Percutaneous Entry Location: Radial Closure Device: Radial Band Recommendations: Medical Therapy and/or Counseling Cardiac Cath Procedure Full Procedure Date February 17, 2024 Pre-Procedure Diagnosis Pre-Procedure Diagnosis: Non STEMI and Cardiomyopathy AUC Score AUC Score: 07 Post-Procedure Diagnosis Post-Procedure Diagnosis: Mild CAD Procedure(s) Performed Procedure(s) Performed: Coronary Angiography Checkout Operator Tab Gamez MD, PhD Estimated Blood Loss Estimated Blood Loss: 5cc Medication(s) Medication(s): Fentanyl, Heparin, Lidocaine 1%, Nicardipine, Nitroglycerin and Versed Summary of Findings Brief description: Patient was brought to the cardiac catheterization suite where she was shaved and prepped in a sterile fashion. Sedated using IV Versed and fentanyl. Soft tissue of the right wrist were anesthetized using 2 mL of 1% Xylocaine. Right radial artery was accessed using modified Seldinger technique and a 6 Estonian radial artery glide sheath was placed. Initial catheter advancement was over a 0.035 Wholey wire. Patient was provided anticoagulation with IV heparin and antispasmodics including nicardipine and nitroglycerin. Left coronary angiography in orthogonal views with a 5 [place] 4 diagnostic catheter. Right coronary angiography in orthogonal views with a 5 [place] 4 diagnostic catheter. Diagnostic catheters were removed. Radial artery sheath was removed. Hemostasis was obtained using the TR band. Patient was hemodynamically stable and asymptomatic. She was returned to the recovery area. This ended the case. Coronary angiography findings: WUR-okrzg-ebiimra vessel trifurcating into LAD, circumflex, and ramus. No disease. UHV-mpnpz-jkhlrwk and transapical. Gives a large first diagonal. Proximal LAD with mild luminal irregularities, calcification, and less than 30% stenosis at the level of the diagonal. The diagonal has no disease. The mid and distal LAD have no disease. OZt-kbjys-ucsxgue and nondominant. Travels in AV groove giving an atrial branch followed by a large branching OM1. Proximal AV groove vessel has mild luminal irregularities. The branch vessels have no disease and after the OM the vessel becomes small before it terminates. Ramus-medium to large in caliber without disease. ISB-hyjwp-zhfefei and dominant. Bifurcates distally into the PDA and posterolateral branches. There is no angiographically evident disease in the RCA or its branches. Summary: 1. Mild nonocclusive coronary disease as described. 2. Guideline directed medical therapy for secondary prevention of coronary disease per primary team. Hemodynamics Rest Ao:: 146/69 mmHg Final Ao: 137/71 mmHg LV: Not performed Recommendations Recommendations: Medical Therapy and/or Counseling Radiation Exposure (mGy) 473 mGy, fluoroscopy time 3.1 minutes Contrast (mls) 55 cc Anesthesia 1 mg Versed, 25 mcg fentanyl IV. Start 1119, and 1130 Procedural Complication(s) None I attest to the content of the Intraoperative Record and any orders documented therein. Any exceptions are noted below. [facility] Card Cath Procedure Codes Cardiac Catheterization Procedure 1: Cardiovascular Cath Procedures: 16800 Coronaries Moderate Sedation Procedure 1: Sedation/Anesthesia: 73852 Mod Sedation by the same physician;Init15 Min Child Age 5 & Up (Initial 15 minutes, start time 1119, end time 1130) PG Care Time/CCT Total # of Minutes Spent Total Time Spent with Patient: Total time spent is greater than 50% in coordination of care (as documented) at patient's floor/unit and/or counseling patient:
== END 2024-02-17 14:30 | disposition home or self-care (01) | DRG 281 ==
LOC: ED 08:34 → 4W 11:40 → SUATTDRO 13:10 → 4W 13:10
PROC: CLB.CCO (2024-02-16 10:30)